=== PATIENT | female | born 1975 | race Caucasian/White ===

== ENCOUNTER 2019-01-20 19:32 | Emergency (ER) | payer BC, OTHER ==
[~2019-01-20] VITALS: Ht 157.5 cm; Wt 74.8 kg
--- OUTSIDE RECORDS SUMMARY | 2019-01-20 19:36 | XMS REPORT | Continuity of Care Document ---
Author Organization Unknown Address Unknown Allergies Active Description Code Type Severity Reaction Onset Reported/Identified Relationship to Patient Clinical Status Yes PENICILLINS 25 Drug Class High Hives 03/22/2018 Medications There is no data. Problems There is no data. Procedures Code Description Performed By Performed On AMS120 NURSING COMMUNICATION 09/08/2018 [id number] URINE TEST 09/09/2018 ADT8 DISCHARGE PATIENT 09/09/2018 [id number] NURSING COMMUNICATION 09/09/2018 [id number] VITAL SIGNS 09/09/2018 QUE378 DIET INSTRUCTIONS TO NURSING 09/09/2018 [id number] GLUCOSE POC 09/09/2018 DIET41 DIET NPO 09/09/2018 IVT3 INSERT PERIPHERAL IV 09/09/2018 [id number] NOTIFY PHYSICIAN 09/09/2018 [id number] NURSING COMMUNICATION 09/09/2018 TJK227 GLUCOSE POC 09/09/2018 IVT10 DISCONTINUE IV 09/09/2018 CEK373 GLUCOSE POC 09/09/2018 [id number] FL FLUORO IMAGES FOR PACS 09/09/2018 Results Test Result Range URINE TEST - 09/09/18 09:58 UCG URINE Negative Negative LIPID PANEL - 12/27/18 13:36 CHOLESTEROL, TOTAL 205 mg/dL <200 HDL CHOLESTEROL 57 mg/dL >50 TRIGLYCERIDES 184 mg/dL <150 LDL-CHOLESTEROL 117 mg/dL (calc) NRG CHOL/HDLC RATIO 3.6 (calc) <5.0 NON HDL CHOLESTEROL 148 mg/dL (calc) <130 CMP - 12/27/18 13:36 GLUCOSE 86 mg/dL 65-99 UREA NITROGEN (BUN) 12 mg/dL 7-25 CREATININE 0.85 mg/dL 0.50-1.10 eGFR NON-AFR. SCOTTISH 83 mL/min/1.73m2 > OR=60 eGFR 96 mL/min/1.73m2 > OR=60 BUN/CREATININE RATIO NOT APPLICABLE (calc) 6-22 SODIUM 145 mmol/L 135-146 POTASSIUM 5.1 mmol/L 3.5-5.3 CHLORIDE 107 mmol/L 98-110 CARBON DIOXIDE 15 mmol/L 20-32 CALCIUM 9.9 mg/dL 8.6-10.2 PROTEIN, TOTAL 7.8 g/dL 6.1-8.1 ALBUMIN 4.5 g/dL 3.6-5.1 GLOBULIN 3.3 g/dL (calc) 1.9-3.7 ALBUMIN/GLOBULIN RATIO 1.4 (calc) 1.0-2.5 BILIRUBIN, TOTAL 0.4 mg/dL 0.2-1.2 ALKALINE PHOSPHATASE 74 U/L 33-115 AST 20 U/L 10-35 ALT 11 U/L 6-29 Encounters ACCT No. Visit Date/Time Discharge Status Pt. Type Provider Facility Loc./Unit Complaint [id number] 12/20/2018 16:40:00 12/20/2018 23:59:59 CLS Outpatient OXANA ELYSE NEREYDA [facility] [id number] 12/27/2018 14:30:00 Document Registration [id number] 09/09/2018 08:54:00 09/09/2018 12:10:00 DIS Outpatient NED CORTEZ [facility] GI dysphagia [id number] 09/09/2018 10:44:43 Document Registration
--- NOTE | 2019-01-20 19:47 | NUR ---
DOCTOR MO IN TO SEE THE PATIENT.
--- NOTE | 2019-01-20 19:51 | ED Neck-Back Pain/Injury ---
General Chief Complaint: Head/Cervical Problems Stated Complaint: MIGRAINE History of Present Illness Date Seen by Provider: January 20, 2019 Time Seen by Provider: 19:46 Initial Comments 43-year-old female with history of migraines presents with her typical migraine. She states she has film unusually but this is typical for her. She describes a generalized headache more frontal in nature. No head injury. Not on any blood thinners. She denies any paresthesias or weakness. No incoordination or dysarthria reported. She states her headache is been precipitated by stress. Headache has been present for prospect for days. She has tried Tylenol once for it but has not had improvement. No balance or incoordination problems reported. She has had nausea without vomiting. She states that she is able to get a ride home. Allergies and Home Medications Allergies Coded Allergies: Penicillins (Verified Allergy, Unknown, 01/20/19) Patient Home Medication List Home Medication List Reviewed: Yes Review of Systems Constitutional: no symptoms reported EENTM: no symptoms reported Respiratory: no symptoms reported Cardiovascular: no symptoms reported Gastrointestinal: see HPI Genitourinary: no symptoms reported : No Musculoskeletal: no symptoms reported Skin: no symptoms reported Psychiatric/Neurological: See HPI, Anxiety, Headache; Denies Numbness, Denies Paresthesia, Denies Pre-Existing Deficit, Denies Weakness Past Zlggxsq-Prfiic-Jmqlou Hx Past Med/Social Hx: Reviewed Nursing Past Med/Soc Hx Patient Social History Recent Foreign Travel: No Contact w/Someone Who Travel: No Physical Exam Vital Signs Vital Signs - First Documented 01/20/19 19:44 Temp 97.7 Pulse 83 Resp 20 B/P (MAP) 154/102 (119) Pulse Ox 100 O2 Delivery Room Air Capillary Refill : Less than 2 seconds Height, Weight, BMI Height: '" Weight: lbs. oz. kg; BMI Method: General Appearance: No Apparent Distress, WD/WN HEENT: PERRL/EOMI, TMs Normal, Normal ENT Inspection, Pharynx Normal Neck: Full Range of Motion, Normal Inspection, Non Tender, Supple Cardiovascular: Regular Rate, Rhythm, No Edema, No Gallop, No JVD, No Murmur, Normal Peripheral Pulses Respiratory: Chest Non Tender, Lungs Clear, Normal Breath Sounds, No Accessory Muscle Use, No Respiratory Distress, Accessory Muscle Use Peripheral Pulses: 0 Carotid (R); 2+ Carotid (R); 0 Carotid (L); 2+ Carotid (L) ; 0 Femoral (R); 2+ Femoral (R); 0 Femoral (L); 2+ Femoral (L); 0 Dorsalis Pedis (R); 2+ Dorsalis Pedis (R); 0 Left Dors-Pedis (L); 2+ Left Dors-Pedis (L) , 2+ Radial Pulses (R), 2+ Radial Pulses (L) Gastrointestinal: Normal Bowel Sounds, No Organomegaly, No Pulsatile Mass, Non Tender, Soft Back: Normal Inspection, No CVA Tenderness, No Vertebral Tenderness, Other Extremity: Normal Capillary Refill, Normal Inspection, Normal Range of Motion, Non Tender, No Calf Tenderness, No Pedal Edema Neurologic/Psychiatric: Alert, Oriented x3, No Motor/Sensory Deficits, Normal Mood/Affect, mainframe analyst II-XII Norm as Tested; No EOM Palsy, No Facial Droop, No Motor Weakness; Other (NIH 0, finger to nose normal bilaterally. Sensation to light touch normal.) Skin: Normal Color, Warm/Dry Lymphatic: No Adenopathy, Axilla Node Tender (L) Progress/Results/Core Measures Results/Orders Lab Results Laboratory Tests Test 01/20/19 20:06 01/20/19 20:10 Range/Units Urine Color YELLOW Urine Clarity CLEAR Urine pH 5.5 5-9 Urine Specific [place] 1.025 H 1.016-1.022 Urine Protein NEGATIVE NEGATIVE Urine Glucose (UA) NEGATIVE NEGATIVE Urine Ketones TRACE H NEGATIVE Urine Nitrite NEGATIVE NEGATIVE Urine Bilirubin NEGATIVE NEGATIVE Urine Urobilinogen 0.2 NORMAL MG/DL Urine Leukocyte Esterase NEGATIVE NEGATIVE Urine RBC (Auto) TRACE H NEGATIVE Urine RBC 0-2 /HPF Urine WBC 0-2 /HPF Urine Squamous Epithelial Cells 0-2 /HPF Urine Crystals NONE /LPF Urine Bacteria NEGATIVE /HPF Urine Casts NONE /LPF Urine Mucus NONE /LPF Urine Culture Indicated NO Urine Opiates Screen NEGATIVE NEGATIVE Urine Oxycodone Screen NEGATIVE NEGATIVE Urine Methadone Screen NEGATIVE NEGATIVE Urine Propoxyphene Screen NEGATIVE NEGATIVE Urine Barbiturates Screen NEGATIVE NEGATIVE Ur Tricyclic Antidepressants Screen NEGATIVE NEGATIVE Urine Phencyclidine Screen NEGATIVE NEGATIVE Urine Amphetamines Screen NEGATIVE NEGATIVE Urine Methamphetamines Screen NEGATIVE NEGATIVE Urine Benzodiazepines Screen NEGATIVE NEGATIVE Urine Cocaine Screen NEGATIVE NEGATIVE Urine Cannabinoids Screen NEGATIVE NEGATIVE White Blood Count 13.1 H 4.3-11.0 10^3/uL Red Blood Count 4.47 4.35-5.85 10^6/uL Hemoglobin 13.0 11.5-16.0 G/DL Hematocrit 39 35-52 % Mean Corpuscular Volume 89 80-99 FL Mean Corpuscular Hemoglobin 29 25-34 PG Mean Corpuscular Hemoglobin Concent 33 32-36 G/DL Red Cell Distribution Width 13.9 10.0-14.5 % Platelet Count 329 130-400 10^3/uL Mean Platelet Volume 10.2 7.4-10.4 FL Neutrophils (%) (Auto) 71 42-75 % Lymphocytes (%) (Auto) 22 12-44 % Monocytes (%) (Auto) 5 0-12 % Eosinophils (%) (Auto) 1 0-10 % Basophils (%) (Auto) 1 0-10 % Neutrophils # (Auto) 9.4 H 1.8-7.8 X 10^3 Lymphocytes # (Auto) 2.9 1.0-4.0 X 10^3 Monocytes # (Auto) 0.6 0.0-1.0 X 10^3 Eosinophils # (Auto) 0.1 0.0-0.3 10^3/uL Basophils # (Auto) 0.1 0.0-0.1 10^3/uL Sodium Level 140 135-145 MMOL/L Potassium Level 4.0 3.6-5.0 MMOL/L Chloride Level 104 98-107 MMOL/L Carbon Dioxide Level 23 21-32 MMOL/L Anion Gap 13 5-14 MMOL/L Blood Urea Nitrogen 7 7-18 MG/DL Creatinine 0.76 0.60-1.30 MG/DL Estimat Glomerular Filtration Rate > 60 BUN/Creatinine Ratio 9 Glucose Level 92 70-105 MG/DL Calcium Level 8.7 8.5-10.1 MG/DL Corrected Calcium 8.6 8.5-10.1 MG/DL Total Bilirubin 0.3 0.1-1.0 MG/DL Aspartate Amino Transf (AST/SGOT) 17 5-34 U/L Alanine Aminotransferase (ALT/SGPT) 10 0-55 U/L Alkaline Phosphatase 71 40-136 U/L Total Protein 7.6 6.4-8.2 GM/DL Albumin 4.1 3.2-4.5 GM/DL My Orders Orders - CALLUM HASSAN MD Cbc With Automated Diff (01/20/19 19:52) Comprehensive Metabolic Panel (01/20/19 19:52) Drug Screen Stat (Urine) (01/20/19 19:52) Ua Culture If Indicated (01/20/19 19:52) Ed Iv/Invasive Line Start (01/20/19 19:52) Ed Iv/Invasive Line Start (01/20/19 19:52) Ns Iv 1000 Ml (Sodium Chloride 0.9%) (01/20/19 19:52) Ketorolac Injection (Toradol Injection) (01/20/19 20:00) Diphenhydramine Injection (Benadryl Inje (01/20/19 20:00) Promethazine Injection (Phenergan Injec (01/20/19 20:00) Dexamethasone Injection (Decadron Inject (01/20/19 21:00) Medications Given in ED Current Medications Medications Dose Ordered Sig/Wilfrido Route Start Time Stop Time Status Last Admin Dose Admin Dexamethasone Sodium Phosphate 10 mg ONCE ONCE IV 01/20/19 21:00 01/20/19 21:01 DC 01/20/19 20:58 10 MG Diphenhydramine HCl 25 mg ONCE ONCE IV 01/20/19 20:00 01/20/19 20:01 DC 01/20/19 20:10 25 MG Ketorolac Tromethamine 15 mg ONCE ONCE IV 01/20/19 20:00 01/20/19 20:01 DC 01/20/19 20:12 15 MG Promethazine HCl 25 mg ONCE ONCE IVP 01/20/19 20:00 01/20/19 20:01 DC 01/20/19 20:14 25 MG Vital Signs/I&O 01/20/19 19:44 Temp 97.7 Pulse 83 Resp 20 B/P (MAP) 154/102 (119) Pulse Ox 100 O2 Delivery Room Air Progress Progress Note : Time: 20:32 Progress Note Headaches somewhat improved although still present. Has tolerated her medications well. We'll continue infusion of saline and continue to monitor. Discussed with her. 2136 Feeling much better after IVF, Toradol, Phenergan, Benadryl and Decadron. She remains neurologically intact and states that she feels ready to go home. She has a ride to take her home. Discussed follow up. Departure Impression Primary Impression: Migraine Qualified Codes: G43.109 - Migraine with aura, not intractable, without status migrainosus Disposition: 01 HOME, SELF-CARE Condition: Improved Departure-Patient Inst. Decision time for Depature: 21:38 Referrals: CALLUM BEAULIEU MD (PCP) Primary Care Physician 2-3 days, sooner as needed. Patient Instructions: Migraine Headache (DC) CALLUM HASSAN MD January 20, 2019 19:51
[2019-01-20] MEDS ORDERED: NS IV 1000 ML 1,000 ML IV SCH (19:52)
[2019-01-20] MEDS ORDERED: KETOROLAC 15 MG/ML VIAL IV ONE (20:00)
[2019-01-20] MEDS ORDERED: diphenhydrAMINE 50 MG/ML INJ (BENADRYL) IV ONE (20:00)
[2019-01-20] MEDS ORDERED: PROMETHAZINE INJ 25 MG/ML (PHENERGAN) AMP IVP ONE (20:00)
[2019-01-20 20:20] LABS: CLARITY,URINE CLEAR; COLOR,URINE YELLOW; GLUCOSE, URINE (UA) NEGATIVE (NEGATIVE); PH,URINE 5.5 (5-9); PROTEIN,URINE NEGATIVE (NEGATIVE)
[2019-01-20 20:21] LABS: BACTERIA,URINE NEGATIVE /HPF; BILIRUBIN,URINE NEGATIVE (NEGATIVE); KETONES,URINE TRACE (NEGATIVE); LEUKOCYTE ESTERASE ,URINE NEGATIVE (NEGATIVE); NITRITE,URINE NEGATIVE (NEGATIVE); RBC,URINE 0-2 /HPF; SQUAMOUS EPITHELIAL CELL,UR 0-2 /HPF; UROBILINOGEN,URINE 0.2 MG/DL (NORMAL); WBC,URINE 0-2 /HPF
[2019-01-20 20:26] LABS: AMPHETAMINE SCREEN, URINE NEGATIVE (NEGATIVE); BARBITURATE SCREEN URINE NEGATIVE (NEGATIVE); BENZODIAZEPINES SCREEN URINE NEGATIVE (NEGATIVE); CANNABINOID SCREEN, URINE NEGATIVE (NEGATIVE); COCAINE SCREEN URINE NEGATIVE (NEGATIVE); METHADONE STAT NEGATIVE (NEGATIVE); METHAMPHETAMINE SCREEN URINE S NEGATIVE (NEGATIVE); OPIATE SCREEN URINE NEGATIVE (NEGATIVE); OXYCODONE STAT NEGATIVE (NEGATIVE); PROPOXYPHENE STAT NEGATIVE (NEGATIVE); TRICYCLIC ANTIDEPRESSANTS SCRE NEGATIVE (NEGATIVE)
[2019-01-20 20:26] LABS: WHITE BLOOD COUNT 13.1 10^3/uL (4.3-11.0)
[2019-01-20 20:27] LABS: BASOPHILS % (AUTO) 1 % (0-10); EOSINOPHILS % (AUTO) 1 % (0-10); HEMATOCRIT 39 % (35-52); LYMPHOCYTES % (AUTO) 22 % (12-44); MEAN CORPUSCULAR HEMOGLOBIN 29 PG (25-34); MEAN CORPUSCULAR HGB CONC 33 G/DL (32-36); MEAN CORPUSCULAR VOLUME 89 FL (80-99); MEAN PLATELET VOLUME 10.2 FL (7.4-10.4); MONOCYTES % (AUTO) 5 % (0-12); NEUTROPHILS % (AUTO) 71 % (42-75); PLATELET COUNT 329 10^3/uL (130-400); RED CELL DISTRIBUTION WIDTH 13.9 % (10.0-14.5)
[2019-01-20 20:28] LABS: BASOPHILS # (AUTO) 0.1 10^3/uL (0.0-0.1); EOSINOPHILS # (AUTO) 0.1 10^3/uL (0.0-0.3); LYMPHOCYTES # (AUTO) 2.9 X 10^3 (1.0-4.0); MONOCYTES # (AUTO) 0.6 X 10^3 (0.0-1.0); NEUTROPHILS # (AUTO) 9.4 X 10^3 (1.8-7.8)
[2019-01-20 20:51] LABS: SODIUM 140 MMOL/L (135-145)
[2019-01-20 20:52] LABS: ALANINE AMINOTRANSFERASE 10 U/L (0-55); ALKALINE PHOSPHATASE 71 U/L (40-136); BILIRUBIN,TOTAL 0.3 MG/DL (0.1-1.0); BUN/CREATININE RATIO 9; CALCIUM 8.7 MG/DL (8.5-10.1); CARBON DIOXIDE 23 MMOL/L (21-32); CHLORIDE 104 MMOL/L (98-107); CREATININE SERUM 0.76 MG/DL (0.60-1.30); GFR ESTIMATED > 60; GLUCOSE 92 MG/DL (70-105)
[2019-01-20 20:53] LABS: ALBUMIN 4.1 GM/DL (3.2-4.5); TOTAL PROTEIN 7.6 GM/DL (6.4-8.2)
[2019-01-20] MEDS ORDERED: DEXAMETHASONE 4 MG/ML SDV (DECADRON) IV ONE (21:00)
--- NOTE | 2019-01-20 21:12 | NUR ---
PT. RESTING WITH EYES CLOSED AT THIS TIME.
--- NOTE | 2019-01-20 21:24 | NUR ---
PT. TO THE BATHROOM AT THIS TIME.
[2019-01-20 21:44] VITALS: BP 154/102
== END 2019-01-20 21:45 | disposition home or self-care (01) ==
LOC: ER FS 19:33
DX: G43.909 Migraine, unspecified, not intractable, without status migrainosus (principal); Z88.0 Allergy status to penicillin
CPT/HCPCS: 36415; 80053; 80306; 81000; 85025; 99284

== ENCOUNTER 2019-05-17 18:59 | Emergency (ER) | payer BC ==
[~2019-05-17] VITALS: Ht 157.5 cm; Wt 77.1 kg
--- NOTE | 2019-05-17 20:47 | ED General ---
General Chief Complaint: Head/Cervical Problems Stated Complaint: MIGRAINE, LT SIDE ABD PAIN Nursing Triage Note: pt. reported she started having a migraine and abd. pain around 1400 today. has had some nausea but no vomiting. the abd. pain is upper gastric on the left side. Nursing Sepsis Screen: No Definite Risk Source of Information: Patient History of Present Illness Date Seen by Provider: May 17, 2019 Time Seen by Provider: 20:47 Initial Comments 44-year-old female presenting with complaints of left-sided headache as well as left-sided abdominal pain. She states that the migraine headache started around 1:30 or 2:00 this afternoon. She started having the left-sided abdominal pain a round the same time. The abdominal pain feels similar to pains that she was having approximately a year ago just prior to having a surgery for hiatal hernia and reflux disease. She has had nausea but no vomiting. She states that she cannot vomit now that she's had the surgery for where the hernia and ordered the reflux. She reports that they did 3 things at one time when they get surgery and it was done at [facility]. She does not remember the exact name of the surgery or the surgeon. It was approximately 1 year ago today that they did the surgery. She has not had any of this pain on the left side until today. She denies any diarrhea or constipation. She has a history of recurrent headaches and migraines but they are decreased since she has been on topiramate from Dr. Sultana. She also has been having some near syncopal episodes in the afternoons this feels similar to having a low blood sugar. She gets shaky and due to the passes out. She did have one of those episodes today while she was not feeling good. These always seemed to happen around 3:30 or 4:00. Allergies and Home Medications Allergies Coded Allergies: Penicillins (Verified Allergy, Unknown, 01/20/19) Patient Home Medication List Home Medication List Reviewed: Yes Review of Systems Review of Systems Constitutional: No chills, No fever, No malaise EENTM: no symptoms reported Respiratory: no symptoms reported Cardiovascular: no symptoms reported Gastrointestinal: abdominal pain (LUQ); No constipation, No diarrhea, No dysphagia, No hematemesis; heartburn (mild); No jaundice, No melena, No nausea, No vomiting Genitourinary: no symptoms reported Musculoskeletal: no symptoms reported Skin: no symptoms reported Psychiatric/Neurological: No Symptoms Reported Hematologic/Lymphatic: No Symptoms Reported Past Qlxecxa-Wfodbq-Bbiqmf Hx Past Med/Social Hx: Reviewed Nursing Past Med/Soc Hx Patient Social History Recent Foreign Travel: No Contact w/Someone Who Travel: No Recent Infectious Disease Expo: No Physical Abuse: No Sexual Abuse: No Mistreated: No Fear: No Physical Exam Vital Signs Vital Signs - First Documented 05/17/19 19:05 Temp 98.0 Pulse 82 Resp 16 B/P (MAP) 156/86 (109) Pulse Ox 98 O2 Delivery Room Air Capillary Refill : Less Than 3 Seconds Height, Weight, BMI Height: 5'2.00" Weight: 170lbs. oz. 77.482865as; BMI Method:Stated General Appearance: No Apparent Distress, WD/WN HEENT: PERRL/EOMI, Normal ENT Inspection, Pharynx Normal Neck: Full Range of Motion, Normal Inspection, Non Tender, Supple Respiratory: Chest Non Tender, Lungs Clear, Normal Breath Sounds, No Accessory Muscle Use, No Respiratory Distress Cardiovascular: Regular Rate, Rhythm, Normal Peripheral Pulses Gastrointestinal: Normal Bowel Sounds, No Pulsatile Mass, Soft; No Abnormal Bowel Sounds, No Distended, No Guarding, No Hernia, No Mass, No Rebound; Tenderness (mild left upper quadrant) Extremity: Normal Capillary Refill, Normal Inspection, Normal Range of Motion, No Calf Tenderness, No Pedal Edema Neurologic/Psychiatric: Alert, Oriented x3, No Motor/Sensory Deficits, Normal Mood/Affect, mark up designer II-XII Norm as Tested Skin: Normal Color, Warm/Dry Progress/Results/Core Measures Suspected Sepsis Recent Fever Within 48 Hours: No Infection Criteria Present: None New/Unexplained Altered Menta: No Sepsis Screen: No Definite Risk SIRS Temperature:98.0 Pulse: 82 Respiratory Rate: 16 Laboratory Tests 05/17/19 21:25: White Blood Count 11.2H Blood Pressure 156 /86 Mean: 109 Laboratory Tests 05/17/19 21:25: Creatinine 0.84, Platelet Count 350, Total Bilirubin 0.3 Results/Orders Lab Results Laboratory Tests Test 05/17/19 21:25 05/17/19 22:22 Range/Units White Blood Count 11.2 H 4.3-11.0 10^3/uL Red Blood Count 4.45 4.35-5.85 10^6/uL Hemoglobin 13.3 11.5-16.0 G/DL Hematocrit 40 35-52 % Mean Corpuscular Volume 91 80-99 FL Mean Corpuscular Hemoglobin 30 25-34 PG Mean Corpuscular Hemoglobin Concent 33 32-36 G/DL Red Cell Distribution Width 14.0 10.0-14.5 % Platelet Count 350 130-400 10^3/uL Mean Platelet Volume 10.2 7.4-10.4 FL Neutrophils (%) (Auto) 55 42-75 % Lymphocytes (%) (Auto) 37 12-44 % Monocytes (%) (Auto) 5 0-12 % Eosinophils (%) (Auto) 2 0-10 % Basophils (%) (Auto) 1 0-10 % Neutrophils # (Auto) 6.2 1.8-7.8 X 10^3 Lymphocytes # (Auto) 4.1 H 1.0-4.0 X 10^3 Monocytes # (Auto) 0.6 0.0-1.0 X 10^3 Eosinophils # (Auto) 0.2 0.0-0.3 10^3/uL Basophils # (Auto) 0.1 0.0-0.1 10^3/uL Sodium Level 140 135-145 MMOL/L Potassium Level 4.0 3.6-5.0 MMOL/L Chloride Level 104 98-107 MMOL/L Carbon Dioxide Level 20 L 21-32 MMOL/L Anion Gap 16 H 5-14 MMOL/L Blood Urea Nitrogen 12 7-18 MG/DL Creatinine 0.84 0.60-1.30 MG/DL Estimat Glomerular Filtration Rate > 60 BUN/Creatinine Ratio 14 Glucose Level 91 70-105 MG/DL Calcium Level 8.9 8.5-10.1 MG/DL Corrected Calcium 8.5 8.5-10.1 MG/DL Total Bilirubin 0.3 0.1-1.0 MG/DL Aspartate Amino Transf (AST/SGOT) 16 5-34 U/L Alanine Aminotransferase (ALT/SGPT) 12 0-55 U/L Alkaline Phosphatase 73 40-136 U/L Total Protein 7.9 6.4-8.2 GM/DL Albumin 4.5 3.2-4.5 GM/DL Lipase 38 8-78 U/L Urine Color YELLOW Urine Clarity CLEAR Urine pH 7.5 5-9 Urine Specific [place] 1.010 L 1.016-1.022 Urine Protein NEGATIVE NEGATIVE Urine Glucose (UA) NEGATIVE NEGATIVE Urine Ketones NEGATIVE NEGATIVE Urine Nitrite NEGATIVE NEGATIVE Urine Bilirubin NEGATIVE NEGATIVE Urine Urobilinogen 0.2 NORMAL MG/DL Urine Leukocyte Esterase NEGATIVE NEGATIVE Urine RBC (Auto) TRACE H NEGATIVE Urine RBC NONE /HPF Urine WBC RARE /HPF Urine Squamous Epithelial Cells 5-10 /HPF Urine Crystals NONE /LPF Urine Bacteria TRACE /HPF Urine Casts NONE /LPF Urine Mucus NONE /LPF Urine Culture Indicated NO Urine Test NEGATIVE NEGATIVE My Orders Orders - CHUCKY SINGH MD Iv/Invasive Line Insertion .IV start (05/17/19 21:26) Cbc With Automated Diff (05/17/19 21:26) Comprehensive Metabolic Panel (05/17/19 21:26) Lipase (05/17/19 21:26) Ua Culture If Indicated (05/17/19 21:26) Hcg,Qualitative Urine (05/17/19 21:26) Ns Iv 1000 Ml (Sodium Chloride 0.9%) (05/17/19 21:26) Ketorolac Injection (Toradol Injection) (05/17/19 21:26) Diphenhydramine Injection (Benadryl Inje (05/17/19 21:26) Ondansetron Injection (Zofran Injectio (05/17/19 21:26) Pantoprazole Injection (Protonix Injecti (05/17/19 21:26) Vital Signs/I&O 05/17/19 05/17/19 19:05 23:09 Temp 98.0 97.0 Pulse 82 77 Resp 16 18 B/P (MAP) 156/86 (109) 133/76 (95) Pulse Ox 98 96 O2 Delivery Room Air Room Air 05/18/19 00:00 Intake Total 1000 ml Balance 1000 ml Capillary Refill : Less Than 3 Seconds Blood Pressure Mean: 109 Progress Note #1: Progress Note Check labs and give IV fluids with Toradol, Benadryl, Zofran for her migraine. Counseled that we might do a CT scan but would wait for the labs and tests to see if anything came back showing abnormal before putting her through the radiation of the scan. Progress Note #2: Progress Note On recheck her headache was down to 1 or 2 after treatment with medicines and fluids. Her abdominal pain was improved after the Protonix as well as the medicines that she was getting for the migraine. She was providing a urine sample and discussed with the patient that provided the urine and took a with plan on discharging the patient rather than putting her through the radiation of a CT scan which would increase her lifelong risk of potential cancer. Progress Note #3: Progress Note Urinalysis was okay without indication of an acute urinary tract infection. Reviewed results with patient and spouse. Will plan on discharge to home as previously reviewed. Advised to check with clinic for continued concerns. Also counseled to try including a high-protein snacker diet towards the early afternoon to try and help with the mid afternoon near fainting episodes in case they are from her sugar dropping Departure Impression Primary Impression: Migraine headache without aura Qualified Codes: G43.009 - Migraine without aura, not intractable, without status migrainosus Additional Impressions: LUQ abdominal pain Near syncope Disposition: 01 HOME, SELF-CARE Condition: Stable Departure-Patient Inst. Decision time for Depature: 23:09 Referrals: CALLUM SULTANA MD (PCP) Primary Care Physician Patient Instructions: Migraine Headache (DC) Add. Discharge Instructions: Continue on your regular medicines Try taking a protein snack or eating something in the early afternoon to see if that helps prevent you from having the near fainting episodes you have been getting in the late afternoon. If your abdominal pain does not improve with taking the acid reducing medicine then check with Dr. Sultana or your surgeon from [facility]. If you continue to have pain or if it worsens then return or seek medical care for further testing and evaluation. Try taking a two week pack of medicine over the counter, such as Prevacid, Nexium or Prilosec to help with your abdominal pain All discharge instructions reviewed with patient and/or family. Voiced understanding. CHUCKY SINGH MD May 17, 2019 20:47
[2019-05-17] MEDS ORDERED: KETOROLAC 30 MG/ML VIAL IVP STA (21:26)
[2019-05-17] MEDS ORDERED: NS IV 1000 ML 1,000 ML IV STA (21:26)
[2019-05-17] MEDS ORDERED: PANTOPRAZOLE 40 MG (PROTONIX) VIAL IV STA (21:26)
[2019-05-17] MEDS ORDERED: ONDANSETRON 4 MG/2 ML (SDV) Z0FRAN IVP STA (21:26)
[2019-05-17] MEDS ORDERED: diphenhydrAMINE 50 MG/ML INJ (BENADRYL) IVP STA (21:26)
[2019-05-17 21:37] LABS: HEMATOCRIT 40 % (35-52); HEMOGLOBIN 13.3 G/DL (11.5-16.0); MEAN CORPUSCULAR HEMOGLOBIN 30 PG (25-34); MEAN CORPUSCULAR HGB CONC 33 G/DL (32-36); MEAN CORPUSCULAR VOLUME 91 FL (80-99); MEAN PLATELET VOLUME 10.2 FL (7.4-10.4); PLATELET COUNT 350 10^3/uL (130-400); WHITE BLOOD COUNT 11.2 10^3/uL (4.3-11.0)
[2019-05-17 21:38] LABS: BASOPHILS # (AUTO) 0.1 10^3/uL (0.0-0.1); BASOPHILS % (AUTO) 1 % (0-10); EOSINOPHILS # (AUTO) 0.2 10^3/uL (0.0-0.3); EOSINOPHILS % (AUTO) 2 % (0-10); LYMPHOCYTES # (AUTO) 4.1 X 10^3 (1.0-4.0); LYMPHOCYTES % (AUTO) 37 % (12-44); MONOCYTES # (AUTO) 0.6 X 10^3 (0.0-1.0); MONOCYTES % (AUTO) 5 % (0-12); NEUTROPHILS # (AUTO) 6.2 X 10^3 (1.8-7.8); NEUTROPHILS % (AUTO) 55 % (42-75)
[2019-05-17 21:54] LABS: BUN/CREATININE RATIO 14; CARBON DIOXIDE 20 MMOL/L (21-32); CHLORIDE 104 MMOL/L (98-107); CREATININE SERUM 0.84 MG/DL (0.60-1.30); GFR ESTIMATED > 60; GLUCOSE 91 MG/DL (70-105); SODIUM 140 MMOL/L (135-145)
[2019-05-17 21:55] LABS: ALANINE AMINOTRANSFERASE 12 U/L (0-55); ALBUMIN 4.5 GM/DL (3.2-4.5); ALKALINE PHOSPHATASE 73 U/L (40-136); BILIRUBIN,TOTAL 0.3 MG/DL (0.1-1.0); CALCIUM 8.9 MG/DL (8.5-10.1); LIPASE 38 U/L (8-78); TOTAL PROTEIN 7.9 GM/DL (6.4-8.2)
[2019-05-17 22:37] LABS: CLARITY,URINE CLEAR; COLOR,URINE YELLOW; PH,URINE 7.5 (5-9)
[2019-05-17 22:38] LABS: BACTERIA,URINE TRACE /HPF; BILIRUBIN,URINE NEGATIVE (NEGATIVE); GLUCOSE, URINE (UA) NEGATIVE (NEGATIVE); KETONES,URINE NEGATIVE (NEGATIVE); LEUKOCYTE ESTERASE ,URINE NEGATIVE (NEGATIVE); NITRITE,URINE NEGATIVE (NEGATIVE); PROTEIN,URINE NEGATIVE (NEGATIVE); UROBILINOGEN,URINE 0.2 MG/DL (NORMAL); WBC,URINE RARE /HPF
[2019-05-17 22:39] LABS: HCG,QUALITATIVE URINE NEGATIVE (NEGATIVE)
[2019-05-17 23:09] VITALS: BP 133/76
== END 2019-05-17 23:16 | disposition home or self-care (01) ==
LOC: EDUNIT# 18:59 → ER FS 19:01
DX: G43.909 Migraine, unspecified, not intractable, without status migrainosus (principal); R55 Syncope and collapse; R10.12 Left upper quadrant pain; Z88.0 Allergy status to penicillin
CPT/HCPCS: 36415; 80053; 81000; 83690; 84703; 85025

== ENCOUNTER 2021-08-16 13:40 | Emergency (ER) | payer BC ==
[~2021-08-16] VITALS: Ht 157.5 cm; Wt 77.1 kg
--- OUTSIDE RECORDS SUMMARY | 2021-08-16 13:44 | XMS REPORT | Encounter Summary ---
Author Author [facility] Organization [facility] Address Unknown Phone Unavailable Care Team Providers Care Custodial Laborer Name Role Phone Vega Sultana MD PCP Encounter Details Care Team Description Date Type Department Encounter for consultation 08/01/2021 Imaging [facility] Virtual [facility] Appointment Location Social History Date Tobacco Use Types Packs/Day Years Used Never Smoker Smokeless Tobacco: Never Used Comments Alcohol Use Standard Drinks/Week rare Yes 0 (1 standard drink = 0.6 o z pure alcohol) Alcohol Habits Answer Date Recorded How often do you have a drink containing alcohol? No t asked How many drinks containing alcohol do you have on No t asked a typical day when you are drinking? How often do you have six or more drinks on one Not asked occasion? Comment: rare 04/04/2020 Sex Assigned at Date Recorded Not on file documented as of this encounter Plan of Treatment Care Team Description Date Type Specialty Clarita Briceno, [facility] [address] [facility] [address] [place] [address] 08/05/2022 Office Visit Obstetrics and Gyne cology documented as of this encounter Procedures Comments Procedure Name Priority Date/Time Associated Diag nosis US OUTSIDE IMAGES FOR Routine 08/01/2021 Encounte r for PACS 7:43 AM NUCLEAR MEDICINE OFFICER consultation documented in this encounter Visit Diagnoses Diagnosis Encounter for consultation documented in this encounter Care Teams Start Date End Date Custodial Laborer Relationship Specialty 12/29/17 Vega Sultana MD PCP - General Pediatrics documented as of this encounter
--- OUTSIDE RECORDS SUMMARY | 2021-08-16 13:44 | XMS REPORT | Encounter Summary ---
Author Author [facility] Organization [facility] Address Unknown Phone Unavailable Care Team Providers Care Equipment Application Specialist Name Role Phone Vega Sultana MD PCP Encounter Details Care Team Description Date Type Department Encounter for consultation 08/01/2021 Imaging [facility] Virtual [facility] Appointment Location Social [...] Care Team Description Date Type [facility]ty [facility] [address] [facility] [address] [place] [address] 08/05/2022 Office Visit Obstetrics and Gyne cology documented as of this encounter Procedures Comments Procedure Name Priority Date/Time Associated Diag nosis MA OUTSIDE IMAGES FOR Routine 08/01/2021 Encounte r for PACS 7:42 AM CIA AGENT consultation documented in this encounter Visit Diagnoses Diagnosis Encounter for consultation documented in this encounter Care Teams Start Date End Date Equipment Application Specialist Relationship Specialty 12/29/17 Vega Sultana MD PCP - General Pediatrics documented as of this encounter
--- OUTSIDE RECORDS SUMMARY | 2021-08-16 13:44 | XMS REPORT | Encounter Summary ---
Author Author [facility] Organization [facility] Address Unknown Phone Unavailable Care Team Providers Care Foreclosure Specialist Name Role Phone Vega Sultana MD PCP Encounter Details Care Team Description Date Type Department Encounter for consultation 08/01/2021 Imaging [facility] Virtual Revenu e Appointment Location Social History [...] Team Description Date Type Specialty Clarita Briceno, [facility] [address] [address] 08/05/2022 Office Visit Obstetrics and Gyne cology documented as of this encounter Procedures Comments Procedure Name Priority Date/Time Associated Diag nosis US OUTSIDE IMAGES FOR Routine 08/01/2021 Encounte r for PACS 7:51 AM SERVICE ASSOCIATE consultation documented in this encounter Visit Diagnoses Diagnosis Encounter for consultation documented in this encounter Care Teams Start Date End Date Foreclosure Specialist Relationship Specialty 12/29/17 Vega Sultana MD PCP - General Pediatrics documented as of this encounter
--- OUTSIDE RECORDS SUMMARY | 2021-08-16 13:44 | XMS REPORT | Encounter Summary ---
Author Author [facility] Organization [facility] Address Unknown Phone Unavailable Care Team Providers Care Hospital Cleaning Specialist Name Role Phone Vega Sultana MD PCP Encounter Details Care Team Description Date Type Department Encounter for consultation 08/01/2021 Imaging [facility] Virtual Revenu e Appointment Location Social History [...] Treatment Care Team Description Date Type [facility]ty [facility] [address] [facility] [address] [place] [address] 08/05/2022 Office Visit Obstetrics and Gyne cology documented as of this encounter Procedures Comments Procedure Name Priority Date/Time Associated Diag nosis MA OUTSIDE IMAGES FOR Routine 08/01/2021 Encounte r for PACS 7:43 AM SED MIDDLE SCHOOL TEACHER consultation documented in this encounter Visit Diagnoses Diagnosis Encounter for consultation documented in this encounter Care Teams Start Date End Date Hospital Cleaning Specialist Relationship Specialty 12/29/17 Vega Sultaan MD PCP - General Pediatrics documented as of this encounter
--- OUTSIDE RECORDS SUMMARY | 2021-08-16 13:44 | XMS REPORT | Clinical Summary ---
Author Author [facility] Organization [facility] Address Unknown Phone Unavailable Care Team Providers Care Floor Coverer Apprentice Name Role Phone Vega Sultana MD PCP Allergies Comments Active Allergy Reactions Severity Noted Date Azithromycin Hives 11/05/2017 Eletriptan Hbr Hives 03/25/2016 Mometasone-Formoterol Rash Low 09/18/20 14 Penicillins Hives High 03/22/2018 Compazine Compazine Prochlorperazine Hallucination 06/13/2019 s Triamcinolone Acetonide Rash Low 2008 Medications End Date Status Medication Sig Dispensed Refills Start Date Active topiramate (TOPAMAX) 50 Take 50 mg by 0 03/04/ 201 MG tablet mouth. 9 Active SUMAtriptan (IMITREX) 25 1 tablet with 0 01/26 /201 MG tablet onset of 9 migraine symptoms. january repeat 1 tab after 2 hours if symptoms persist. Active ondansetron (ZOFRAN-ODT) Take 4 mg by 0 01/24 4 MG disintegrating mouth every 8 9 tablet (eight) hours as needed. Active budesonide-formoteroL Inhale 2 0 09/15/20 1 (SYMBICORT) 160-4.5 puffs as 7 mcg/actuation inhaler needed. Active albuterol Inhale 2 0 (PROAIR/PROVENTIL/VENTOLI puffs every 6 9 N) 90 mcg/actuation HFA (six) hours inhaler as needed. Active estradioL 0.05 mg/24 Place 1 patch 24 patch 3 hrIndications: Menopausal on the skin 2 1 syndrome on hormone (two) times a replacement therapy week. 07/31/2021 Discontinued (Patient stoppe d taking - suppress on AVS) docusate sodium (COLACE) Take 1 60 capsule 2 0 100 MG capsule capsule (100 0 mg total) by mouth 2 (two) times a day. 07/31/2021 Discontinued (Reorder) estradioL 0.05 mg/[address] 1 patch 24 patch 3 on the skin 2 1 (two) times a week. 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 Added automatically from request for ranjana wang [id number] GERD (gastroesophageal reflux disease) 04/13/2018 05/18/2018 Hiatal hernia 04/13/2018 05/18/2018 Encounters Care Team Description Date Type Specialty Encounter for consultation 08/01/2021 Imaging Radiology Appointment Encounter for consultation 08/01/2021 Imaging Radiology Appointment Encounter for consultation 08/01/2021 Imaging Radiology Appointment Encounter for consultation 08/01/2021 Imaging Radiology Appointment Encounter for consultation 08/01/2021 Imaging Radiology Appointment Encounter for consultation 08/01/2021 Imaging Radiology Appointment Encounter for consultation 08/01/2021 Imaging Radiology Appointment Clarita Briceno ARNP Screening mammogram, encounter for 07/31/2021 Hospital Radiology Encounter Clarita Briceno ARNP Encounter for gynecological examination with abnormal finding (Primary Dx); 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; Pelvic pain; MORAIMA (stress urinary incontinence, female); Screening mammogram, encounter for 07/31/2021 Office Visit Obstetrics and Gyne cology Suzanne Meade RN med too expensive 06/20/2021 Telephone Obstetrics and Gyne cology Clarita Briceno ARNP Menopausal syndrome (Primary Dx); Screening mammogram, encounter for 06/19/2021 Office Visit Obstetrics and Gyne cology from Last 3 Months Immunizations Name Administration Dates Next Due Influenza QIV (IM) 06/18/2020 Influenza, Seasonal, 08/03/2019 Injectable Moderna Sars-cov-2 Full 11/30/2020, 10/25/2020 Dose PPD Test 11/18/2016 Td 09/21/1995 Tdap 04/14/2019 Family History Medical History Relation Name Comments Esophageal cancer Father Prostate cancer Father Breast cancer Maternal Aunt 1 Ovarian cancer Maternal Aunt 1 Breast cancer Maternal Aunt 2 Diabetes Mother Hypertension Mother Alcohol abuse Neg Hx Colon cancer Neg Hx Coronary artery disease Neg Hx Stroke Neg Hx Uterine cancer Neg Hx Relation Name Status Comments Father Maternal Aunt 1 Maternal Aunt 2 Mother Social History Date Tobacco Use Types Packs/Day [...] Assigned at Date Recorded Not on file Last Filed Vital Signs Reading Time Taken Comments Vital Sign 122/73 07/31/2021 9:03 AM SEAMER PANTY HOSE Blood Pressure 80 06/13/2020 3:09 PM CDT Pulse 36.8 C (98.3 F) 05/03/2020 7:59 AM CDT Temperature 16 05/03/2020 7:59 AM CDT Respiratory Rate 95% 05/03/2020 7:59 AM CDT Oxygen Saturation - - Inhaled Oxygen Concentration 78.9 kg (174 lb) 07/31/2021 9:03 AM SEAMER PANTY HOSE Weight 157.5 cm (5' 2") 07/31/2021 9:03 AM SEAMER PANTY HOSE Height 31.83 07/31/2021 9:03 AM SEAMER PANTY HOSE Body Mass Index Plan of Treatment Care Team Description Date Type Specialty Clarita Briceno ARNP [address] [facility] [address] [place] [address] 08/05/2022 Office Visit Obstetrics and Gyne cology Health Maintenance Due Date Last Done Comments Depression Monitoring 07/31/2022 07/31/2021 PHQ-9 # Td/Tdap# 04/14/2029 04/14/2019, 09/21/1995 Influenza Vaccine Completed 06/17/2021, 06/18/2020, 08/03/2019, Additional history exists COVID-19 Vaccine Completed 07/29/2021, 11/30/2020, 10/25/2020 Pneumococcal Vaccine: Aged Out No longer eligib le based on patient's age to Pediatrics (0 to 5 Years) complete this topic and At-Risk Patients (6 to 64 Years) Implants Device Identifier Shelf Expiration Date Model / Serial / L ot Implanted Type Area Manufactur er 02/16/2022 [id number] / / [id number] Implant Linx Reflux Mgmt System Mri Non-Tissue N/A: Abdom en TORAX Compatable - [id number] Implant Implanted: Qty: 1 on 05/18/2018 by Cesario Johnson MD at [facility] Procedures Comments Procedure Name Priority Date/Time Associated Diag nosis US OUTSIDE IMAGES FOR Routine 08/01/2021 Encounte r for PACS 7:51 AM SEAMER PANTY HOSE consultation US OUTSIDE IMAGES FOR Routine 08/01/2021 Encounte r for PACS 7:44 AM SEAMER PANTY HOSE consultation US OUTSIDE IMAGES FOR Routine 08/01/2021 Encounte r for PACS 7:43 AM SEAMER PANTY HOSE consultation MA OUTSIDE IMAGES FOR Routine 08/01/2021 Encounte r for PACS 7:43 AM SEAMER PANTY HOSE consultation MA OUTSIDE IMAGES FOR Routine 08/01/2021 Encounte r for PACS 7:43 AM SEAMER PANTY HOSE consultation MA OUTSIDE IMAGES FOR Routine 08/01/2021 Encounte r for PACS 7:43 AM SEAMER PANTY HOSE consultation MA OUTSIDE IMAGES FOR Routine 08/01/2021 Encounte r for PACS 7:42 AM SEAMER PANTY HOSE consultation MA MAMMOGRAM SCREENING W Routine 07/31/2021 Scree mirna mammogram, CAD TIMOTHY BILAT 10:11 AM SEAMER PANTY HOSE encounter for from Last 3 Months Results * US Outside images for PACS (08/01/2021 7:51 AM SEAMER PANTY HOSE) Only the most recent of 3 results within the time period is included. Specimen Performing Organization Address City/State/ZIP Code P amara [place] * MA Outside images for PACS (08/01/2021 7:43 AM SEAMER PANTY HOSE) Only the most recent of 4 results within the time period is included. Specimen Performing Organization Address City/State/ZIP Code Gertrudis Swain [place] * MA MAMMOGRAM SCREENING W CAD TIMOTHY BILAT (07/31/2021 10:11 AM SEAMER PANTY HOSE) Modality Anatomical Region Laterality Mammography Breast Specimen Impressions JONES - 08/01/2021 2:19 PM SEAMER PANTY HOSE No mammographic evidence of malignancy. Routine mammogram in 1 year is recommended. Patient will receive a reminder letter. BI-RADS CATEGORY 1: Negative READING SITE: [facility] Ashlyn Vargas M.D. Electronically Signed: 08/01/2021 at 02:16:09 PM Your patient will receive the results of this examination as outlined by the Mammography Quality Standards Act. Cintia Merino, [id number] 1975 1 Page 1li Narrative JONES - 08/01/2021 2:19 PM SEAMER PANTY HOSE [facility] [address] [place] [address], [address] [place] [address] Patient: Cintia Merino Date of : 1975 Referring Physician: Clarita Briceno Exam Date: 07/31/2021 Exam Procedure Performed: MA Mammogram screening w CAD timothy bilat - bilateral REASON FOR EXAM Patient is 46 years old and is seen for screening. The following views were obtained: bilateral CC; bilateral MLO; bilateral CC TIMOTHY; and bilateral MLO TIMOTHY. IMAGE COMPARISON Comparison is made with prior exams dating back to 06/13/20, 04/20/19, 04/19/18. DIGITAL MAMMOGRAM CAD-analysis was used in the interpretation of this study. The breasts are almost entirely fatty. There are no suspicious masses, areas of architectural distortion or malignant appearing calcifications identified. Procedure Note Ashlyn Vargas MD - 08/01/2021 [facility] [address], [address] [place] [address] Patient: Cintia Merino Date of : 1975 Referring Physician: Clarita Briceno Exam Date: 07/31/2021 Exam Procedure Performed: MA Mammogram screening w CAD timothy bilat - bilateral REASON FOR EXAM Patient is 46 years old and is seen for screening. The following views were obtained: bilateral CC; bilateral MLO; bilateral CC TIMOTHY; and bilateral MLO TIMOTHY. IMAGE COMPARISON Comparison is made with prior exams dating back to 06/13/20, 04/20/19, 04/19/18. DIGITAL MAMMOGRAM CAD-analysis was used in the interpretation of this study. The breasts are almost entirely fatty. There are no suspicious masses, areas of architectural distortion or malignant appearing calcifications identified. IMPRESSION No mammographic evidence of malignancy. Routine mammogram in 1 year is recommended. Patient will receive a reminder letter. BI-RADS CATEGORY 1: Negative READING SITE: [facility] Ashlyn Vargas M.D. Electronically Signed: 08/01/2021 at 02:16:09 PM Your patient will receive the results of this examination as outlined by the Mammography Quality Standards Act. Cintia Merino, [id number] 1975 1 Page 1li Performing Organization Address City/State/[facility] Code P amara Number [place] from Last 3 Months Insurance Type Payer Benefit Subscriber ID Effective Phone Address Plan / Dates Group [employer] [facility] OUT OF [id number] 2019-P [id number] [place] [address] Advance Directives For more information, please contact: [phone] Patient Early Childhood Special Educator Explanation Type Date Recorded Advance Directives and Living Will Power of Health It Specialist Health Care Directive Date Inactivated Comments Code Status Date Activated 05/03/2020 2:48 PM Full Code 05/01/2020 10:18 AM 05/18/2018 6:18 PM Full Code 05/18/2018 11:35 AM 05/18/2018 11:35 AM Full Code 05/18/2018 11:35 AM Care Teams Start Date End Date Floor Coverer Apprentice Relationship Specialty 12/29/17 Vega Sultana MD PCP - General Pediatrics
--- OUTSIDE RECORDS SUMMARY | 2021-08-16 13:44 | XMS REPORT | Encounter Summary ---
Author Author [facility] Organization [facility] Address Unknown Phone Unavailable Care Team Providers Care Able Seaman Name Role Phone Vega Sultana MD PCP Encounter Details Care Team Description Date Type Department Encounter for consultation 08/01/2021 Imaging [facility] Virtual Revenu e Appointment Location Social History [...] Team Description Date Type Specialty Clarita Briceno, [facility] [address] [address] 08/05/2022 Office Visit Obstetrics and Gyne cology documented as of this encounter Procedures Comments Procedure Name Priority Date/Time Associated Diag nosis US OUTSIDE IMAGES FOR Routine 08/01/2021 Encounte r for PACS 7:44 AM CONTRACT PROJECT MANAGER consultation documented in this encounter Visit Diagnoses Diagnosis Encounter for consultation documented in this encounter Care Teams Start Date End Date Able Seaman Relationship Specialty 12/29/17 Vega Sultana MD PCP - General Pediatrics documented as of this encounter
--- OUTSIDE RECORDS SUMMARY | 2021-08-16 13:44 | XMS REPORT | Encounter Summary ---
Author Author [facility] Organization [facility] Address Unknown Phone Unavailable Care Team Providers Care Refrigerator Room Clerk Name Role Phone Vega Sultana MD PCP Encounter Details Care Team Description Date Type Department Encounter for consultation 08/01/2021 Imaging [facility] Virtual Revenu e Appointment Location Social [...] Treatment Care Team Description Date Type [facility]ty [facility] [address] [facility] [address] [place] [address] 08/05/2022 Office Visit Obstetrics and Gyne cology documented as of this encounter Procedures Comments Procedure Name Priority Date/Time Associated Diag nosis MA OUTSIDE IMAGES FOR Routine 08/01/2021 Encounte r for PACS 7:43 AM HEALTHCARE ADMINISTRATION INTERN consultation documented in this encounter Visit Diagnoses Diagnosis Encounter for consultation documented in this encounter Care Teams Start Date End Date Refrigerator Room Clerk Relationship Specialty 12/29/17 Vega Sultana MD PCP - General Pediatrics documented as of this encounter
--- OUTSIDE RECORDS SUMMARY | 2021-08-16 13:44 | XMS REPORT | Encounter Summary ---
Author Author [facility] Organization [facility] Address Unknown Phone Unavailable Care Team Providers Care Carousel Operator Name Role Phone Vega Sultana MD PCP Encounter Details Care Team Description Date Type Department Encounter for consultation 08/01/2021 Imaging [facility] Virtual Revenu e Appointment Location Social [...] Treatment Care Team Description Date Type [facility]ty [facility] [address] [facility] [address] [place] [address] 08/05/2022 Office Visit Obstetrics and Gyne cology documented as of this encounter Procedures Comments Procedure Name Priority Date/Time Associated Diag nosis MA OUTSIDE IMAGES FOR Routine 08/01/2021 Encounte r for PACS 7:43 AM TAKE OFF MAN consultation documented in this encounter Visit Diagnoses Diagnosis Encounter for consultation documented in this encounter Care Teams Start Date End Date Carousel Operator Relationship Specialty 12/29/17 Vega Sultana MD PCP - General Pediatrics documented as of this encounter
--- OUTSIDE RECORDS SUMMARY | 2021-08-16 13:45 | XMS REPORT | Encounter Summary ---
Author Author [facility] Organization [facility] Address Unknown Phone Unavailable Care Team Providers Care Spot Welder Line Name Role Phone Vega Sultana MD PCP Reason for Visit * Reason Onset Date Comments med too expensive 06/20/2021 Encounter Details Care Team Description Date Type Department Suzanne Meade RN med too expensive 06/20/2021 Telephone [facility] [address] [facility] [address] [place] [address] Social History Date Tobacco Use Types Packs/Day [...] on file documented as of this encounter Miscellaneous Notes * Telephone Encounter - Suzanne Meade RN - 06/20/2021 4:11 PM CDT Pt advised, would like rx sent to [facility]. Rx sent. * Telephone Encounter - SLIM Bundy - 06/20/2021 1:43 PM CDT Estradiol transdermal 0.05 mg patches are $36.63 at month at [facility] and $38 a t [facility]. Would she like to try this? Her oral options are estradiol, which she did not like, and Premarin, which does not have a generic. * Telephone Encounter - Suzanne Meade RN - 06/20/2021 1:23 PM CDT In Home Tutor pt called stating she was prescribed vivelle dot patches for menopausal symp toms and it was too expensive. Pt tried [facility] and even with that it was 200$. P t wanting an alternative. Pt states she ok taking a pill. Advised pt would consu TLN for alternative and return call. * Telephone Encounter - Suzanne Meade RN - 06/20/2021 1:19 PM CDT ----- Message from Nancy Richmond CNA sent at 06/20/2021 11:30 AM CDT ----- PT of Janak-pt said med prescribed yesterday is too exp. Asking for a different ulternative [phone] documented in this encounter Plan of Treatment Care Team Description Date Type Specialty Clarita Briceno AR[place] [address] [address] 08/05/2022 Office Visit Obstetrics and Gyne cology documented as of this encounter Visit Diagnoses Not on filedocumented in this encounter Care Teams Start Date End Date Spot Welder Line Relationship Specialty 12/29/17 Vega Sultana MD PCP - General Pediatrics documented as of this encounter
--- OUTSIDE RECORDS SUMMARY | 2021-08-16 13:45 | XMS REPORT | Encounter Summary ---
Author Author [facility] Organization [facility] Address Unknown Phone Unavailable Care Team Providers Care Drum Tester Name Role Phone Vega Sultana MD PCP Reason for Referral * Diagnostic Imaging (Routine) - Closed Diagnoses / Procedures [facility]erred [facility] mamm[facility], encounter for Procedures MA Mammogram screening w Clarita Pérez ARNP [address] [place] [address] [facility] Mammo [place] [address] [facility] [address] [place] [address] Radiology Referral ID Status Reason Start Date Expiration Visits Vi sits Date Requested Authorized [id number] Closed 06/19/2021 06/19/2022 1 1 CTOR OF MEDIA Reason for Visit * Diagnostic Imaging (Routine) - Closed Diagnoses / Procedures Referred By [facility] Screening mammogram, encounter for Procedures MA Mammogram screening w Clarita Pérez ARNP [address] [place] [address] [facility]amm[facility] [place] [address], [address] [place] [address] Radiology Referral ID Status Reason Start Date Expiration Visits Vi sits Date Requested Authorized [id number] Closed 06/19/2021 06/19/2022 1 1 Encounter Details Care Team Description Date Type Department [facility]ric[facility] [address] [facility] [address] [place] [address] Screening mammogram, encounter for 07/31/2021 [facility] [address], [address] [place] [address] Social History Date Tobacco Use Types Packs/Day [...] on file documented as of this encounter Medications at Time of Discharge Start Date End Date Medication Sig Dispensed Refills 07/19/2019 albuterol Inhale 2 0 (PROAIR/PROVENTIL/VENTOLI puffs every 6 N) 90 mcg/actuation HFA (six) hours inhaler as needed. 09/15/2017 budesonide-formoteroL Inhale 2 0 (SYMBICORT) 160-4.5 puffs as mcg/actuation inhaler needed. 08/01/2021 estradioL 0.05 mg/24 Place 1 patch 24 patch 3 hrIndications: Menopausal on the skin 2 syndrome on hormone (two) times a replacement therapy week. 01/24/2019 ondansetron (ZOFRAN-ODT) Take 4 mg by 0 4 MG disintegrating mouth every 8 tablet (eight) hours as needed. 01/26/2019 SUMAtriptan (IMITREX) 25 1 tablet with 0 MG tablet onset of migraine symptoms. may repeat 1 tab after 2 hours if symptoms persist. 03/04/2019 topiramate (TOPAMAX) 50 Take 50 mg by 0 MG tablet mouth. documented as of this encounter Plan of Treatment Care Team Description Date Type Specialty Clarita Briceno ARNP [address] [facility] [address] [place] [address] 08/05/2022 Office Visit Obstetrics and Gyne cology documented as of this encounter Procedures Comments Procedure Name Priority Date/Time Associated Diag nosis MA MAMMOGRAM SCREENING W Routine 07/31/2021 [facility] joyceg mammogram, CAD TIMOTHY BILAT 10:11 AM DIRECTOR OF MEDIA encounter for documented in this encounter Results * MA MAMMOGRAM SCREENING W CAD TIMOTHY BILAT (07/31/2021 10:11 AM DIRECTOR OF MEDIA) Modality Anatomical Region Laterality Mammography Breast Specimen Impressions RODOLFO - 08/01/2021 2:19 PM DIRECTOR OF MEDIA No mammographic evidence of malignancy. Routine mammogram in 1 year is recommended. Patient will receive a reminder letter. BI-RADS CATEGORY 1: Negative READING SITE: [facility] Ashlyn Vargas M.D. Electronically Signed: 08/01/2021 at 02:16:09 PM Your patient will receive the results of this examination as outlined by the Mammography Quality Standards Act. Cintia Merino, [id number] 1975 1 Page 1li Narrative JONES - 08/01/2021 2:19 PM DIRECTOR OF MEDIA [facility] [address], [address] [place], [place] [id number] Patient: Cintia Merino Date of : 1975 [...] Procedure Note Ashlyn Vargas MD - 08/01/2021 [facility] [address], [address] [place] [address] Patient: Cintia Merino Date of : 1975 [...] letter. BI-RADS CATEGORY 1: Negative READING SITE: [facility] Ashlyn Vargas M.D. Electronically Signed: 08/01/2021 at 02:16:09 PM Your patient will receive the results of this examination as outlined by the Mammography Quality Standards Act. Cintia Merino, [id number] 1975 1 Page 1li Performing Organization Address City/State/ZIP Code P [facility]ara [facility] documented in this encounter Visit Diagnoses Diagnosis Screening mammogram, encounter for documented in this encounter Care Teams Start Date End Date Drum Tester Relationship Specialty 12/29/17 Vega Sultana MD PCP - General Pediatrics documented as of this encounter
--- OUTSIDE RECORDS SUMMARY | 2021-08-16 13:45 | XMS REPORT | Encounter Summary ---
Author Author [facility] Organization [facility] Address Unknown Phone Unavailable Care Team Providers Care Outcomes Specialist Name Role Phone Vega Sultana MD PCP Reason for Visit * Reason Comments Annual Exam Follow-up Encounter Details Care Team Description Date Type Department Clarita Briceno [facility] [address] [place], [place] [id number] Encounter for gynecological examination with abnormal finding (Primary Dx); 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; Pelvic pain; MORAIMA (stress urinary incontinence, female); Screening mammogram, encounter for 07/31/2021 Office Visit [facility] [address] [place], [place] [id number] Social History Date Tobacco Use Types Packs/Day [...] on file documented as of this encounter Last Filed Vital Signs Reading Time Taken Comments Vital Sign 122/73 07/31/2021 9:03 AM PROVIDER RELATIONS REPRESENTATIVE Blood Pressure - - Pulse - - Temperature - - Respiratory Rate - - Oxygen Saturation - - Inhaled Oxygen Concentration 78.9 kg (174 lb) 07/31/2021 9:03 AM PROVIDER RELATIONS REPRESENTATIVE Weight 157.5 cm (5' 2") 07/31/2021 9:03 AM PROVIDER RELATIONS REPRESENTATIVE Height 31.83 07/31/2021 9:03 AM PROVIDER RELATIONS REPRESENTATIVE Body Mass Index documented in this encounter Progress Notes * Josh Up DO - 07/31/2021 9:00 AM PROVIDER RELATIONS REPRESENTATIVE I have reviewed and agree with the notes of this encounter. Josh Up 07/31/2021 10:08 AM IDER RELATIONS REPRESENTATIVE * SLIM Bundy - 07/31/2021 9:00 AM PROVIDER RELATIONS REPRESENTATIVE [facility] | [facility] Patient Name: Cintia Merino : 1975 Date of Service: 07/31/2021 PROGRESS NOTE - ADULT WELL WOMAN VISIT CHIEF COMPLAINT: Chief Complaint Patient presents with Annual Exam Follow-up HPI Cintia Merino is a 46 y.o. female here today for well exam and follow up menopau lisa symptoms. She is now 1 years postmenopause following LUISA/BSO in April 2020 for uterine fibroids. Vasomotor symptoms are improving on transdermal estrogen. She is sexually active. Vaginal dryness and pain with intercourse denied. Incont inence occasionally with cough, especially. She has occasional urge incontinence if her bladder is really full. Denies vaginal bleeding or discharge. Patient co mplains of intermittent sharp pelvic pain. She has been evaluated by primary car e. X-ray was normal. Patient states she was told it was a muscle cramp. She stat es it is happening more frequently and is concerned. 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 Menstrual History: Date of last PAP: 04/04/20 PAP date in Health Maintenance: No History of abnormal PAP Smear: Yes (Comment: Cryotherapy) Approximate date if unknown: Health Cycle Frequency: (Comment: s/p hyst) Ashwini/Menopause: Ashwini/Menopausal Symptoms: decreased libido, hot flashes, mood swings Menopause: Current HRT Therapies: estrogen Previous HRT Therapies: estrogen Past Medical History: Diagnosis Date Abnormal Pap smear of cervix Allergic rhinitis Delayed emergence from anesthesia Depression Epilepsy (HCC) diagnosed as a child, last seizure 1997 Fibroid GERD (gastroesophageal reflux disease) Headache Hiatal hernia Migraine Osteoarthritis lower back Seizures (HCC) Sinusitis Urinary incontinence Past Surgical History: Procedure Laterality Date APPENDECTOMY 2006 CHOLECYSTECTOMY 2004 COLPOSCOPY EGD, WITH BALLOON DILATION N/A 09/09/2018 Procedure: ESOPHAGOGASTRODUODENOSCOPY, WITH BALLOON DILATION; Surgeon: Alisha Thibodeaux MD; Location: [facility] GI; Service: Gastroenterology; Laterali ty: N/A; FUNDOPLICATION, LAPAROSCOPIC, RENATO N/A 05/18/2018 Procedure: LAPAROSCOPIC ESOPHAGEAL SPHINCTER AUGMENTATION; Surgeon: Cesario elaine MD; Location: [facility] Main OR; Service: General; Laterality: N/A; GYNECOLOGIC CRYOSURGERY HYSTERECTOMY,ABDOMINAL,OPEN,WITH BILATERAL SALPINGO-OOPHORECTOMY Bilateral Procedure: HYSTERECTOMY, ABDOMINAL, OPEN, WITH BILATERAL SALPINGECTOMY/OOPHEREC XENIA; Surgeon: Catina Ames MD; Location: [facility] Main OR; Service: Gynecology; Laterality: Bilateral; REPAIR, HIATAL HERNIA, LAPAROSCOPIC N/A 05/18/2018 Procedure: LAPAROSCOPIC HIATAL HERNIA REPAIR,; Surgeon: Cesario Johnson MD; Loc ation: [facility] Main OR; Service: General; Laterality: N/A; UPPER GASTROINTESTINAL ENDOSCOPY Family History Problem Relation Age of Onset Diabetes Mother Hypertension Mother Prostate cancer Father Esophageal cancer Father Breast cancer Maternal Aunt Ovarian cancer Maternal Aunt Breast cancer Maternal Aunt Colon cancer Neg Hx Stroke Neg Hx Alcohol abuse Neg Hx Uterine cancer Neg Hx Coronary artery disease Neg Hx Social History Socioeconomic History Marital status: Tobacco Use Smoking status: Never Smoker Smokeless tobacco: Never Used Vaping Use Vaping Use: Never used Substance and Sexual Activity Alcohol use: Yes Comment: rare Drug use: No Sexual activity: Yes Partners: Male control/protection: None PHQ-9: Over the last 2 weeks, how often have you been bothered by any of the following problems? Little Interest or Pleasure in Doing Things: 0 Feeling Down, Depressed, or Hopeless: 0 Trouble falling or staying asleep, or sleeping too much: 0 Feeling tired or having little energy: 1 Poor appetite or overeatin Feeling bad about yourself - or that you are a failure or have let yourself or y our family down: 0 Trouble concentrating on things, such as reading the newspaper or watching telev ision: 0 Moving or speaking so slowly that other people could have noticed. Or the opposi te - being so fidgety or restless that you have been moving around a lot more th an usual: 0 Thoughts that you would be better off , or of hurting yourself in some way: 0 PHQ-9 Total Score: 2 If you checked off any problems, how difficult have these problems made it for y ou to do your work, take care of things at home, or get along with other people? : Not difficult at all Score Interpretation: Minimal Depressive Symptoms CURRENT MEDICATIONS Current Outpatient Medications: albuterol (PROAIR/PROVENTIL/VENTOLIN) 90 mcg/actuation HFA inhaler, Inhale 2 puffs every 6 (six) hours as needed., Disp: , Rfl: budesonide-formoteroL (SYMBICORT) 160-4.5 mcg/actuation inhaler, Inhale 2 p uffs as needed. , Disp: , Rfl: [START ON 08/01/2021] estradioL 0.05 mg/24 hr, Place 1 patch on the skin 2 (two) times a week., Disp: 24 patch, Rfl: 3 ondansetron (ZOFRAN-ODT) 4 MG disintegrating tablet, Take 4 mg by mouth bhavana ry 8 (eight) hours as needed., Disp: , Rfl: SUMAtriptan (IMITREX) 25 MG tablet, 1 tablet with onset of migraine symptom s. may repeat 1 tab after 2 hours if symptoms persist., Disp: , Rfl: topiramate (TOPAMAX) 50 MG tablet, Take 50 mg by mouth., Disp: , Rfl: ALLERGIES Allergies Allergen Reactions Penicillins Hives Azithromycin Hives Eletriptan Hbr Hives Prochlorperazine Hallucinations Compazine Compazine Mometasone-Formoterol Rash Triamcinolone Acetonide Rash REVIEW OF SYSTEMS Pertinent positives/negatives are noted in HPI. All other systems negative. OBJECTIVE BP 122/73 | Ht 5' 2" | Wt 174 lb | LMP 03/31/2020 | BMI 31.83 kg/m EXAMINATION GENERAL GENERAL: Well developed, well nourished White or female alert, in no a cute distress. NECK/THYROID: Neck is supple with full range of motion. No thyromegaly, masses or nodules. LYMPH NODES: No cervical, supra/infra/subclavicular lymphadenopathy. No inguina l lymphadenopathy. SKIN: No suspicious lesions, warm and dry. HEART: Heart rate regular LUNGS: Lungs clear to auscultation in all viveros. ABDOMEN: Soft, RLQ tenderness to palpation, without mass or hepatosplenomegaly. EXTREMITIES: Extremities with full range of motion and without edema NEUROLOGIC: Cooperative with exam, motor strength normal upper and lower extremi ties. PSYCH: Mood/affect full range. GYNECOLOGICAL A merchandise for resale purchasing agent was offered for this sensitive examination, but the patient requeste d that a merchandise for resale purchasing agent not be present. BREASTS: Soft, nontender, without palpable mass, no axillary adenopathy, no nip ple discharge, no skin changes. EXTERNAL GENITALIA: Hair distribution is normal. Vulva without lesions or discha rge. Bartholin and Kevin's glands are not palpable. Urethral meatus without les ion and prolapse. VAGINA: Vaginal mucosa without lesion, adequate estrogen effect, decreased tone and adequate support. There is no tenderness over the bladder CERVIX/UTERUS: Surgically absent ADNEXA: No masses or tenderness bilaterally. RECTAL: No hemorrhoids or perianal lesions ASSESSMENT/PLAN 1. Encounter for gynecological examination with abnormal finding Encourage calcium intake of 7980-7675 mg daily in diet and supplement. Vitamin D supplementation of at least 0160-6768 IU daily Encouraged aerobic exercise 30-60 minutes most days per week. Goal of 150+ minut es per week Screening cervical cytology is no longer indicated due to history of hysterectom y, low risk for new HPV acquisition and adequate negative prior screening. Depression symptoms are minimal. PHQ-9 score of 2. Immunizations needed: Sars-CoV-19 vaccine completed. Influenza vaccinated for season 2. 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 Doing well with current therapy. Continue estradiol patch Prescription refilled for one year - estradioL 0.05 mg/24 hr; Place 1 patch on the skin 2 (two) times a week. Disp ense: 24 patch; Refill: 3 3. Pelvic pain S/p LUISA/BSO Patient to discuss further with PCP. Consider GI consult and or pelvic CT 4. MORAIMA (stress urinary incontinence, female) Discussed pelvic floor physical therapy. Patient will call if she would like to pursue 5. Screening mammogram, encounter for Patient is encouraged in breast awareness. Call office with concerns. Annual breast imaging is encouraged. Next mammogram scheduled for today Follow up: 1 year for Well Woman Exam or prn concerns Clarita Briceno APRN, WHNP-BC IDER RELATIONS REPRESENTATIVE documented in this encounter Plan of Treatment Care Team Description Date Type Specialty Clarita Briceno ARNP [address] [facility] [address] [place] [address] 08/05/2022 Office Visit Obstetrics and Gyne cology documented as of this encounter Visit Diagnoses Diagnosis Encounter for gynecological examination with abnormal finding - Primary Menopausal syndrome on hormone replacem ent therapy Pelvic pain MORAIMA (stress urinary incontinence, femal e) Screening mammogram, encounter for documented in this encounter Care Teams Start Date End Date Outcomes Specialist Relationship Specialty 12/29/17 Vega Sultana MD PCP - General Pediatrics documented as of this encounter
--- OUTSIDE RECORDS SUMMARY | 2021-08-16 13:45 | XMS REPORT | Encounter Summary ---
Author Author [facility] Organization [facility] Address Unknown Phone Unavailable Care Team Providers Care Armature Varnisher Name Role Phone Vega Sultana MD PCP Reason for Referral * Diagnostic Imaging (Routine) - Closed Diagnoses / Procedures [facility] Screening mammogram, encounter for Procedures MA Mammogram screening w CAD bilat Clarita Briceno ARNP [address] [address] [place] [address] [facility] [place] [address], [address] [place] [address] Radiology Referral ID Status Reason Start Date Expiration Visits Vi sits Date Requested Authorized [id number] Closed 06/19/2021 06/19/2022 1 1 Reason for Visit * Reason Comments Menopause Encounter Details Care Team Description Date Type Department Clarita Briceno ARNP [address] [place] [address] Menopausal syndrome (Primary Dx); Screening mammogram, encounter for 06/19/2021 Office Visit [facility] [address] [place], [place] [id number] Social History Date Tobacco Use Types Packs/Day [...] Signs Reading Time Taken Comments Vital Sign 126/85 06/19/2021 11:14 AM CDT Blood Pressure - - Pulse - - Temperature - - Respiratory Rate - - Oxygen Saturation - - Inhaled Oxygen Concentration 79.8 kg (176 lb) 06/19/2021 11:14 AM CDT Weight 157.5 cm (5' 2") 06/19/2021 11:14 AM CDT Height 32.19 06/19/2021 11:14 AM CDT Body Mass Index documented in this encounter Progress Notes * SLIM Bundy - 06/19/2021 11:15 AM CDT [facility] | [facility] Patient Name: Cintia Merino : 1975 Date of Service: 06/19/2021 CHIEF COMPLAINT: Menopause History of Present Illness Cintia Merino is a 46 y.o. female who presents to office with complaint of menopausal symptoms. She has been seen by Dr. Ames in the past. Patient i s s/p LUISA/BSO in 04/2020 for fibroids and AUB. Patient complains of moods swings and being overly emotional. She has multiple hot flashes throughout the day. Den ies night sweats and sleep disturbances. She is sexually active and denies pain and dryness with intercourse. She has family history of breast and ovarian cance r. She reports negative genetic screening in the past. Mammogram is current. We do not have results. Medical history of hypertension. Patient denies hyperlipide kalie. Patient was prescribed oral estradiol in the past but gained 20 pounds whil e taking this. She would like to avoid therapy which will cause weight gain. 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 Menstrual History: Date of last PAP: 04/04/20 PAP date in Health Maintenance: No History of abnormal PAP Smear: Yes (Comment: Cryotherapy) Approximate date if unknown: Health Cycle Frequency: (Comment: s/p hyst) Ashwini/Menopause Ashwini/Menopausal Symptoms: decreased libido, hot flashes, mood swings Menopause: Previous HRT Therapies: estrogen, stopped taking Past Medical History: Diagnosis Date Allergic rhinitis Delayed emergence from anesthesia Epilepsy (HCC) diagnosed as a child, last seizure 1997 GERD (gastroesophageal reflux disease) Headache Hiatal hernia Osteoarthritis lower back Seizures (HCC) Sinusitis Family History Problem Relation Age of Onset Diabetes Mother Hypertension Mother Prostate cancer Father Esophageal cancer Father Breast cancer Maternal Aunt Ovarian cancer Maternal Aunt Breast cancer Maternal Aunt Social History Socioeconomic History Marital status: Spouse name: Not on file Number of children: Not on file Years of education: Not on file Highest education level: Not on file Tobacco Use Smoking status: Never Smoker Smokeless tobacco: Never Used Vaping Use Vaping Use: Never used Substance and Sexual Activity Alcohol use: Yes Comment: rare Drug use: No Sexual activity: Yes Partners: Male control/protection: None Social Determinants of Health Financial Resource Strain: Difficulty of Paying Living Expenses: Food Insecurity: Worried About Running Out of Food in the Last Year: Ran Out of Food in the Last Year: Transportation Needs: Lack of Transportation (Medical): Lack of Transportation (Non-Medical): Physical Activity: Days of Exercise per Week: Minutes of Exercise per Session: Stress: Feeling of Stress : MEDICATIONS: Current Outpatient Medications: albuterol (PROAIR/PROVENTIL/VENTOLIN) 90 mcg/actuation HFA inhaler, Inhale 2 puffs every 6 (six) hours as needed., Disp: , Rfl: budesonide-formoteroL (SYMBICORT) 160-4.5 mcg/actuation inhaler, Inhale 2 p uffs as needed. , Disp: , Rfl: docusate sodium (COLACE) 100 MG capsule, Take 1 capsule (100 mg total) by m outh 2 (two) times a day., Disp: 60 capsule, Rfl: 2 ondansetron (ZOFRAN-ODT) 4 MG disintegrating tablet, Take 4 mg by mouth bhavana ry 8 (eight) hours as needed., Disp: , Rfl: SUMAtriptan (IMITREX) 25 MG tablet, 1 tablet with onset of migraine symptom s. may repeat 1 tab after 2 hours if symptoms persist., Disp: , Rfl: topiramate (TOPAMAX) 50 MG tablet, Take 50 mg by mouth., Disp: , Rfl: [START ON 06/20/2021] estradioL (VIVELLE-DOT) 0.05 mg/24 hr, Place 1 patch o n the skin 2 (two) times a week., Disp: 24 patch, Rfl: 3 ALLERGIES: Allergies Allergen Reactions Penicillins Hives Azithromycin Hives Eletriptan Hbr Hives Prochlorperazine Hallucinations Compazine Compazine Mometasone-Formoterol Rash Triamcinolone Acetonide Rash REVIEW OF SYSTEMS: Pertinent items are noted in HPI. PHYSICAL EXAM: Vitals: BP 126/85 | Ht 5' 2" | Wt 176 lb | LMP 03/31/2020 | BMI 32.19 kg/m Physical Exam Constitutional: General: She is not in acute distress. Appearance: Normal appearance. She is well-developed. Musculoskeletal: General: Normal range of motion. Skin: General: Skin is warm and dry. Neurological: General: No focal deficit present. Mental Status: She is alert and oriented to person, place, and time. Psychiatric: Mood and Affect: Mood normal. Behavior: Behavior normal. Thought Content: Thought content normal. Judgment: Judgment normal. ASSESSMENT/PLAN: 1. Menopausal syndrome Discussed options of oral vs transdermal estrogen vs SSRI. Discussed side effect s including weight gain estrogen and SSRI and decreased libido with SSRI. Patient will trial transdermal estrogen. She will call with concerns prior to fo llow up appointment. - estradioL (VIVELLE-DOT) 0.05 mg/24 hr; Place 1 patch on the skin 2 (two) times a week. Dispense: 24 patch; Refill: 3 2. Screening mammogram, encounter for - MA Mammogram screening w CAD bilat; Future Follow up: 6-8 weeks for WWE and medication follow up Clarita Briceno APRN, WHLESTER-BC documented in this encounter Plan of Treatment Care Team Description Date Type Specialty Clarita Briceno ARNP [address] [address] 08/05/2022 Office Visit Obstetrics and Gyne cology documented as of this encounter Results * MA MAMMOGRAM SCREENING W CAD TIMOTHY BILAT (07/31/2021 10:11 AM MATERIAL CONTROL ASSOCIATE) Modality Anatomical Region Laterality Mammography Breast Specimen Impressions JONES - 08/01/2021 2:19 PM MATERIAL CONTROL ASSOCIATE No mammographic evidence of malignancy. Routine mammogram in 1 year is recommended. Patient will receive a reminder letter. BI-RADS CATEGORY 1: Negative READING SITE: [facility] Ashlyn Vargas M.D. Electronically Signed: 08/01/2021 at 02:16:09 PM Your patient will receive the results of this examination as outlined by the Mammography Quality Standards Act. Cintia Merino, [id number] 1975 1 Page 1li Narrative JONES - 08/01/2021 2:19 PM MATERIAL CONTROL ASSOCIATE [address], [address] [place] [address] Patient: Cintia Merino Bridget Date of : 1975 Referring Physician: Clarita [...] Procedure Note Ashlyn Vargas MD - 08/01/2021 [facility] [address], [address] [place] [address] Patient: Cintia Merino Date of [...] letter. BI-RADS CATEGORY 1: Negative READING SITE: [facility] Ashlyn Vargas M.D. Electronically Signed: 08/01/2021 at 02:16:09 PM Your patient will receive the results of this examination as outlined by the Mammography Quality Standards Act. Cintia Merino, [id number] 1975 1 Page 1li Performing Organization Address City/State/ZIP Code P [facility] Number [place] documented in this encounter Visit Diagnoses Diagnosis Menopausal syndrome - Primary Symptomatic menopausal or female climac teric states Screening mammogram, encounter for Screening mammogram, encounter for documented in this encounter Care Teams Start Date End Date Armature Varnisher Relationship Specialty 12/29/17 Vega Sultana MD PCP - General Pediatrics documented as of this encounter
[2021-08-16] MEDS ORDERED: KETOROLAC 30 MG/ML VIAL IVP STA (13:58)
--- NOTE | 2021-08-16 14:06 | ED Chest Pain ---
General Chief Complaint: Chest Pain Stated Complaint: CHEST PAIN Source: patient History of Present Illness Date Seen by Provider: Aug 16, 2021 Time Seen by Provider: 13:40 Initial Comments 46-year-old female presenting with complaints of left-sided sharp chest pains with deep breath. She states that this started around 8:45 AM. She has not had pain like this before. She denied any trauma or injury. She has not had any cough or congestion. She denies any fever or chills. She does have mild nausea with the pain. She states that the pain came on while she was getting dressed. She has had the pain fairly constantly since 845 this morning. She thought it just get better but when it was not going away she finally came to the emergency department. She has a history of having a hysterectomy as well as migraines. She has not taken anything for the pain. Timing/Duration: 4-6 hours Severity/Quality: severe Prior CP/Workup: no prior chest pain ASA po [employer]: No NTG SL [employer]: No Associated Symptoms: No abdominal pain, No back pain, No diaphoresis, No dizziness, No edema, No fatigue, No fever/chills, No headache, No heartburn; nausea/vomiting (nausea but no vomiting); No rash, No swelling/lump in chest, No syncope, No weakness Allergies and Home Medications Allergies Coded Allergies: Penicillins (Verified Allergy, Unknown, 01/20/19) azithromycin (Verified Allergy, Unknown, 08/16/21) eletriptan (Verified Allergy, Unknown, 08/16/21) mometasone furoate (Verified Allergy, Unknown, 08/16/21) prochlorperazine (Verified Allergy, Unknown, 08/16/21) triamcinolone (Verified Allergy, Unknown, 08/16/21) Patient Home Medication List Home Medication List Reviewed: Yes Ibuprofen (Ibuprofen) 800 Mg Tablet, 800 MG PO Q8H PRN for PAIN Prescribed by: CHUCKY SINGH on 08/16/21 6090 Review of Systems Review of Systems Constitutional: No chills, No fever EENTM: No Symptoms Reported Respiratory: Shortness of Air (due to pain with deep breaths on left side of chest) Cardiovascular: Chest Pain (left sided chest pain sharp in nature, worse with deep breaths and with palpation of left upper chest wall) Gastrointestinal: Nausea; Denies Vomiting Genitourinary: No Symptoms Reported Musculoskeletal: no symptoms reported Skin: No rash Psychiatric/Neurological: Anxiety; Denies Headache, Denies Numbness, Denies Paresthesia Hematologic/Lymphatic: Denies Blood Clots Past Vfnqrid-Wuumoq-Bctvzx Hx Patient Social History Tobacco Use?: No Past Medical History Surgery/Hospitalization HX: Total Hysterectomy and oopherectomy for vaginal bleeding. Migraines Surgeries: Yes Hysterectomy, Oophorectomy Physical Exam Vital Signs Vital Signs - First Documented 08/16/21 13:50 Temp 36.8 Pulse 91 Resp 16 B/P (MAP) 161/101 (121) Pulse Ox 99 O2 Delivery Room Air Capillary Refill : Height, Weight, BMI Height: 5'2.00" Weight: 170lbs. oz. 77.369564ti; BMI Method:Stated General Appearance: WD/WN, Anxious HEENT: PERRL/EOMI, Pharynx Normal Neck: Full Range of Motion, Normal Inspection, Non Tender, Supple Respiratory: Lungs Clear, Normal Breath Sounds, No Accessory Muscle Use, No Respiratory Distress; No Rhonci, No Stridor, No Wheezing; Other (tender to palpation left upper anterior chest wall causes the same pain as when she gonzalo aths deep) Cardiovascular: Regular Rate, Rhythm, No Edema, No Murmur, Normal Peripheral Pulses Gastrointestinal: Normal Bowel Sounds, No Pulsatile Mass, Non Tender, Soft Rectal: Deferred Extremity: Normal Capillary Refill, Normal Inspection, No Calf Tenderness, No Pedal Edema Neurologic/Psychiatric: Alert, Oriented x3, annual giving director II-XII Norm as Tested Skin: Normal Color, Warm/Dry Images 1 - tender to palpation left upper chest wall Progress/Results/Core Measures Results/Orders Lab Results Laboratory Tests Test 08/16/21 13:53 Range/Units White Blood Count 8.5 4.3-11.0 10^3/uL Red Blood Count 4.82 3.80-5.11 10^6/uL Hemoglobin 14.2 11.5-16.0 g/dL Hematocrit 43 35-52 % Mean Corpuscular Volume 88 80-99 fL Mean Corpuscular Hemoglobin 29 25-34 pg Mean Corpuscular Hemoglobin Concent 33 32-36 g/dL Red Cell Distribution Width 14.0 10.0-14.5 % Platelet Count 338 130-400 10^3/uL Mean Platelet Volume 10.3 9.0-12.2 fL Immature Granulocyte % (Auto) 0 % Neutrophils (%) (Auto) 50 42-75 % Lymphocytes (%) (Auto) 38 12-44 % Monocytes (%) (Auto) 7 0-12 % Eosinophils (%) (Auto) 3 0-10 % Basophils (%) (Auto) 1 0-10 % Neutrophils # (Auto) 4.3 1.8-7.8 X 10^3 Lymphocytes # (Auto) 3.3 1.0-4.0 X 10^3 Monocytes # (Auto) 0.6 0.0-1.0 X 10^3 Eosinophils # (Auto) 0.3 0.0-0.3 10^3/uL Basophils # (Auto) 0.1 0.0-0.1 10^3/uL Immature Granulocyte # (Auto) 0.0 0.0-0.1 10^3/uL Prothrombin Time 13.1 12.2-14.7 SEC INR Comment 1.0 0.8-1.4 Activated Partial Thromboplast Time 27 24-35 SEC D-Dimer 0.34 0.00-0.49 UG/ML Sodium Level 139 135-145 MMOL/L Potassium Level 3.9 3.6-5.0 MMOL/L Chloride Level 104 98-107 MMOL/L Carbon Dioxide Level 24 21-32 MMOL/L Anion Gap 11 5-14 MMOL/L Blood Urea Nitrogen 12 7-18 MG/DL Creatinine 0.75 0.60-1.30 MG/DL Estimat Glomerular Filtration Rate 82 BUN/Creatinine Ratio 16 Glucose Level 87 70-105 MG/DL Calcium Level 9.2 8.5-10.1 MG/DL Corrected Calcium 9.0 8.5-10.1 MG/DL Magnesium Level 2.1 1.6-2.4 MG/DL Total Bilirubin 0.3 0.1-1.0 MG/DL Aspartate Amino Transf (AST/SGOT) 21 5-34 U/L Alanine Aminotransferase (ALT/SGPT) 18 0-55 U/L Alkaline Phosphatase 95 40-136 U/L Troponin I < 0.30 <0.30 NG/ML Pro-B-Type Natriuretic Peptide 21.1 <75.0 PG/ML Total Protein 8.0 6.4-8.2 GM/DL Albumin 4.3 3.2-4.5 GM/DL Lipase 39 8-78 U/L My Orders Orders - CHUCKY SINGH MD Cbc With Automated Diff (08/16/21 13:58) Magnesium (08/16/21 13:58) Chest 1 View Ap/Pa Only (08/16/21 13:58) Ekg Tracing (08/16/21 13:58) Comprehensive Metabolic Panel (08/16/21 13:58) Protime With Inr (08/16/21 13:58) Partial Thromboplastin Time (08/16/21 13:58) O2 (08/16/21 13:58) Monitor-Rhythm Ecg Trace Only (08/16/21 13:58) Ed Iv/Invasive Line Start (08/16/21 13:58) Lipase (08/16/21 13:58) Troponin I Fs (08/16/21 13:58) Probnp Fs (08/16/21 13:58) Fibrin Degradation Products (08/16/21 13:58) Ketorolac Injection (Toradol Injection) (08/16/21 13:58) Vital Signs/I&O 08/16/21 08/16/21 13:50 16:37 Temp 36.8 Pulse 91 71 Resp 16 16 B/P (MAP) 161/101 (121) 128/71 Pulse Ox 99 97 O2 Delivery Room Air Room Air Progress Progress Note #1: Progress Note Obtain electrocardiogram, chest x-ray, basic labs including cardiac enzymes. With the pain being reproducible on palpation will order Toradol to see if that might help. Differential diagnosis includes chest wall strain, pleurisy, costochondritis, myocardial infarction, acute coronary syndrome, anxiety Progress Note #2: Progress Note Electrocardiogram does not show any acute ischemia. Her chest x-ray is also clear without signs of any definite infiltrate or effusion. Her labs showed stable CBC without elevation in the white blood cell count or signs of anemia. Her chemistry shows stable electrolytes and negative heart enzymes. Her Toradol was not given initially but after it was administered she started to note improvement in her pain. Her vital signs remained stable. Progress Note #3: Progress Note After all of her tests were back and reviewed by reviewed with the patient that her test did not demonstrate any acute heart attack or signs of blood clots or infection. Her pain seem to be more musculoskeletal in nature or pleuritic. Will treat with ibuprofen and encourage fluids and rest. Try alternating ice and heat to the chest wall. Encouraged to follow-up through the clinic for continued concerns and if warranted cardiac risk stratification testing. Initial ECG Impression Date: Aug 16, 2021 Initial ECG Impression Time: 13:42 Initial ECG Rate: 90 Initial ECG Rhythm: Normal Sinus Initial ECG Comparisson: No Previous ECG Available Comment Normal sinus rhythm with a heart rate of 90 bpm. IA interval [address] elevation. QT interval 361 ms with a QTc interval 442 ms. There is no prior tracing available for comparison. Diagnostic Imaging Diagonstic Imaging: Xray Plain Films/CT/US/NM/MRI: chest Comments [facility]. [place], [place] NAME: JOSÉ LUIS MORIN [facility] REC#: [id number] PT STATUS: REG ER : 1975 PHYSICIAN: CHUCKY SINGH MD ADMIT DATE: 08/16/21/ER FS Signed Date of Exam:08/16/21 CHEST 1 VIEW AP/PA ONLY CHEST 1 VIEW AP/PA ONLY Indication: Chest pain. Comparison: None available. Findings: No focal airspace disease in the visualized lungs. Please note that the posterior lower lobes are poorly evaluated by portable radiography. No pleural effusion or pneumothorax. Normal cardiomediastinal silhouette. Magnetic gastroesophageal reflux beads are in place in the epigastric region. Impression: 1. No acute cardiopulmonary process by portable radiography. Dictated by: Dictated on workstation # [id number] Dict: 08/16/21 1409 Trans: 08/16/21 1410 [facility] [id number] Interpreted by: AROLDO YOUNG MD Electronically signed by: AROLDO YOUNG MD 08/16/21 1410 Reviewed: Reviewed by Me Departure Impression Primary Impression: Chest wall pain Additional Impression: Pleurisy Disposition: 01 HOME, SELF-CARE Condition: Stable Departure-Patient Inst. Decision time for Depature: 16:32 Referrals: CALLUM BEAULIEU MD (PCP/Family) Primary Care Physician Patient Instructions: Pleuritic Chest Pain ED Add. Discharge Instructions: Take Ibuprofen to help with pain and inflammation. Use ice alternating with heat to chest wall to help with the area that is tender in left upper chest wall. Check with Dr. Beaulieu and clinic about continued concerns and they may want to have you obtain a stress test or cardiology testing since your Mom had heart disease in her 60s. If you have worsening pain or more problems then you could be re-evaluated to see if there is something new or different on your tests. Currently you do not have signs for a heart attack, pneumonia or infection All discharge instructions reviewed with patient and/or family. Voiced understanding. Scripts Ibuprofen (Ibuprofen) 800 Mg Tablet 800 MG PO Q8H PRN for PAIN for 10 Days, #30 TAB 0 Refills Prov: CHUCKY SINGH MD 08/16/21 CHUCKY SINGH MD Aug 16, 2021 14:06
--- NOTE | 2021-08-16 14:11 | Diagnostic Imaging Report ---
CHEST 1 VIEW AP/PA ONLY Indication: Chest pain. Comparison: None available. Findings: No focal airspace disease in the visualized lungs. Please note that the posterior lower lobes are poorly evaluated by portable radiography. No pleural effusion or pneumothorax. Normal cardiomediastinal silhouette. Magnetic gastroesophageal reflux beads are in place in the epigastric region. Impression: 1. No acute cardiopulmonary process by portable radiography. Dictated by: Dictated on workstation # [id number]
[2021-08-16 14:24] LABS: BASOPHILS % (AUTO) 1 % (0-10); EOSINOPHILS % (AUTO) 3 % (0-10); HEMATOCRIT 43 % (35-52); HEMOGLOBIN 14.2 g/dL (11.5-16.0); LYMPHOCYTES % (AUTO) 38 % (12-44); MEAN CORPUSCULAR HEMOGLOBIN 29 pg (25-34); MEAN CORPUSCULAR HGB CONC 33 g/dL (32-36); MEAN CORPUSCULAR VOLUME 88 fL (80-99); MEAN PLATELET VOLUME 10.3 fL (9.0-12.2); MONOCYTES % (AUTO) 7 % (0-12); NEUTROPHILS % (AUTO) 50 % (42-75); PLATELET COUNT 338 10^3/uL (130-400); WHITE BLOOD COUNT 8.5 10^3/uL (4.3-11.0)
[2021-08-16 14:25] LABS: BASOPHILS # (AUTO) 0.1 10^3/uL (0.0-0.1); EOSINOPHILS # (AUTO) 0.3 10^3/uL (0.0-0.3); LYMPHOCYTES # (AUTO) 3.3 X 10^3 (1.0-4.0); MONOCYTES # (AUTO) 0.6 X 10^3 (0.0-1.0); NEUTROPHILS # (AUTO) 4.3 X 10^3 (1.8-7.8)
[2021-08-16 14:26] LABS: PROTHROMBIN TIME PATIENT 13.1 SEC (12.2-14.7)
[2021-08-16 14:41] LABS: CALCIUM 9.2 MG/DL (8.5-10.1); CREATININE SERUM 0.75 MG/DL (0.60-1.30); POTASSIUM 3.9 MMOL/L (3.6-5.0)
[2021-08-16 14:42] LABS: ALBUMIN 4.3 GM/DL (3.2-4.5); BILIRUBIN,TOTAL 0.3 MG/DL (0.1-1.0); MAGNESIUM 2.1 MG/DL (1.6-2.4)
[2021-08-16 14:45] LABS: FIBRIN DEGRADATION PRODUCTS 0.34 UG/ML (0.00-0.49)
[2021-08-16] MEDS ORDERED: IBUP-1780 PO (16:35)
[2021-08-16 16:37] VITALS: BP 128/71
== END 2021-08-16 16:38 | disposition home or self-care (01) ==
LOC: EDUNIT# 13:40 → ER FS 13:41
DX: R09.1 Pleurisy (principal)
CPT/HCPCS: 36415; 71045; 80053; 83690; 83735; 83880; 84484; 85025; 85379; 85610; 85730; 93005; 93041

== ENCOUNTER 2022-03-20 12:47 | Emergency (ER) | payer BC ==
[~2022-03-20 12:47] MED LIST: IBUP-1780 PO
--- NOTE | 2022-03-20 13:05 | ED Psychosocial ---
General Chief Complaint: Psych/Social Disorder Stated Complaint: PSYCH EVAL History of Present Illness Date Seen by Provider: Mar 20, 2022 Time Seen by Provider: 13:05 Initial Comments 46-year-old female presents because she would like to have a mental health evaluation. Patient reports he has a history of depression and anxiety. She reports that right now she just does not have the will to want to keep going. Patient reports that she has been struggling with depression and occasional suicidal thoughts for a while but today was worse than because she had a discussion with her who stated that he was planning on her. Patient reports that she sees mental health every 2 weeks. Patient did not describe a plan to me. Patient has no Allergies and Home Medications Allergies Coded Allergies: Penicillins (Verified Allergy, Unknown, 01/20/19) azithromycin (Verified Allergy, Unknown, 08/16/21) eletriptan (Verified Allergy, Unknown, 08/16/21) mometasone furoate (Verified Allergy, Unknown, 08/16/21) prochlorperazine (Verified Allergy, Unknown, 08/16/21) triamcinolone (Verified Allergy, Unknown, 08/16/21) Patient Home Medication List Home Medication List Reviewed: Yes Ibuprofen (Ibuprofen) 800 Mg Tablet, 800 MG PO Q8H PRN for PAIN Prescribed by: CHUCKY SINGH on 08/16/21 7595 Review of Systems Constitutional: No chills, No fever EENTM: no symptoms reported Respiratory: no symptoms reported Cardiovascular: no symptoms reported Gastrointestinal: no symptoms reported Genitourinary: no symptoms reported Musculoskeletal: no symptoms reported Skin: no symptoms reported Psychiatric/Neurological: See HPI Past Vxqkssy-Pjnazt-Gehbqf Hx Immunizations Up To Date First/Initial COVID19 Vaccinat: Oct 2020 Second COVID19 Vaccination Panfilo: November 2020 Past Medical History Surgery/Hospitalization HX: Total Hysterectomy and oopherectomy for vaginal bleeding. Migraines Surgeries: Yes Hysterectomy, Oophorectomy Physical Exam Vital Signs - First Documented 03/20/22 13:00 Temp 36.7 Pulse 94 Resp 18 B/P (MAP) 141/96 (111) Pulse Ox 98 O2 Delivery Room Air Capillary Refill : Height, Weight, BMI Height: 5'2.00" Weight: 170lbs. oz. 77.329568sc; 31.00 BMI Method:Stated General Appearance: WD/WN, no apparent distress Neck: full range of motion, supple Respiratory: lungs clear, normal breath sounds Cardiovascular: normal peripheral pulses, regular rate, rhythm Gastrointestinal: non tender, soft Neurologic/Psychiatric: alert, oriented x 3 Appearance/Memory: appropriate appearance Behavior/Eye Contact: avoids eye contact Thoughts/Hallucinations: other (Complains of having suicidal thoughts and thoughts of not wanting to continue) Skin: normal color, warm/dry Progress/Results/Core Measures Results/Orders Lab Results Laboratory Tests Test 03/20/22 13:30 03/20/22 13:36 Range/Units White Blood Count 8.8 4.3-11.0 10^3/uL Red Blood Count 4.53 3.80-5.11 10^6/uL Hemoglobin 13.5 11.5-16.0 g/dL Hematocrit 40 35-52 % Mean Corpuscular Volume 88 80-99 fL Mean Corpuscular Hemoglobin 30 25-34 pg Mean Corpuscular Hemoglobin Concent 34 32-36 g/dL Red Cell Distribution Width 14.6 H 10.0-14.5 % Platelet Count 292 130-400 10^3/uL Mean Platelet Volume 10.3 9.0-12.2 fL Immature Granulocyte % (Auto) 0 % Neutrophils (%) (Auto) 56 42-75 % Lymphocytes (%) (Auto) 35 12-44 % Monocytes (%) (Auto) 5 0-12 % Eosinophils (%) (Auto) 3 0-10 % Basophils (%) (Auto) 1 0-10 % Neutrophils # (Auto) 4.9 1.8-7.8 10^3/uL Lymphocytes # (Auto) 3.0 1.0-4.0 10^3/uL Monocytes # (Auto) 0.5 0.0-1.0 10^3/uL Eosinophils # (Auto) 0.3 0.0-0.3 10^3/uL Basophils # (Auto) 0.1 0.0-0.1 10^3/uL Immature Granulocyte # (Auto) 0.0 0.0-0.1 10^3/uL Sodium Level 142 135-145 MMOL/L Potassium Level 3.7 3.6-5.0 MMOL/L Chloride Level 105 98-107 MMOL/L Carbon Dioxide Level 26 21-32 MMOL/L Anion Gap 11 5-14 MMOL/L Blood Urea Nitrogen 11 7-18 MG/DL Creatinine 0.70 0.60-1.30 MG/DL Estimat Glomerular Filtration Rate 107 BUN/Creatinine Ratio 16 Glucose Level 128 H 70-105 MG/DL Calcium Level 9.5 8.5-10.1 MG/DL Corrected Calcium 9.3 8.5-10.1 MG/DL Total Bilirubin 0.2 0.1-1.0 MG/DL Aspartate Amino Transf (AST/SGOT) 18 5-34 U/L Alanine Aminotransferase (ALT/SGPT) 15 0-55 U/L Alkaline Phosphatase 84 40-136 U/L Total Protein 7.4 6.4-8.2 GM/DL Albumin 4.2 3.2-4.5 GM/DL Salicylates Level < 5.0 L 5.0-20.0 MG/DL Acetaminophen Level < 10 L 10-30 UG/ML Serum Alcohol < 10 <10 MG/DL Urine Color YELLOW Urine Clarity SL CLOUDY Urine pH 5.0 5-9 Urine Specific [place] >=1.030 1.016-1.022 Urine Protein NEGATIVE NEGATIVE Urine Glucose (UA) NEGATIVE NEGATIVE Urine Ketones NEGATIVE NEGATIVE Urine Nitrite NEGATIVE NEGATIVE Urine Bilirubin NEGATIVE NEGATIVE Urine Urobilinogen 0.2 < = 1.0 MG/DL Urine Leukocyte Esterase NEGATIVE NEGATIVE Urine RBC (Auto) NEGATIVE NEGATIVE Urine RBC NONE /HPF Urine WBC NONE /HPF Urine Squamous Epithelial Cells 5-10 /HPF Urine Crystals NONE /LPF Urine Bacteria NEGATIVE /HPF Urine Casts NONE /LPF Urine Mucus MODERATE H /LPF Urine Culture Indicated NO Urine Opiates Screen NEGATIVE NEGATIVE Urine Oxycodone Screen NEGATIVE NEGATIVE Urine Methadone Screen NEGATIVE NEGATIVE Urine Propoxyphene Screen NEGATIVE NEGATIVE Urine Barbiturates Screen NEGATIVE NEGATIVE Ur Tricyclic Antidepressants Screen NEGATIVE NEGATIVE Urine Phencyclidine Screen NEGATIVE NEGATIVE Urine Amphetamines Screen NEGATIVE NEGATIVE Urine Methamphetamines Screen NEGATIVE NEGATIVE Urine Benzodiazepines Screen NEGATIVE NEGATIVE Urine Cocaine Screen NEGATIVE NEGATIVE Urine Cannabinoids Screen NEGATIVE NEGATIVE My Orders Orders - GRANADOS,DIAMANTE L DO Ua Culture If Indicated (03/20/22 13:08) Cbc With Automated Diff (03/20/22 13:08) Comprehensive Metabolic Panel (03/20/22 13:08) Alcohol (03/20/22 13:08) Drug Screen Stat (Urine) (03/20/22 13:08) Acetaminophen (03/20/22 13:08) Salicylate (03/20/22 13:08) Ekg Tracing (03/20/22 13:08) Monitor-Rhythm Ecg Trace Only (03/20/22 13:08) Bh Status Checks/Observation Q15M (03/20/22 13:08) Vital Signs/I&O 03/20/22 13:00 Temp 36.7 Pulse 94 Resp 18 B/P (MAP) 141/96 (111) Pulse Ox 98 O2 Delivery Room Air Progress Progress Note : Progress Note Patient evaluated by behavioral health. After evaluation by behavioral health they feel that she is safe to go home with a safety plan and outpatient behavioral health follow-up. Patient was in agreement. Patient was stable and discharged home Initial ECG Impression Date: Mar 20, 2022 Initial ECG Impression Time: 14:12 Initial ECG Rate: 57 Initial ECG Rhythm: S.Tony Initial ECG Impression: Normal Departure Impression Primary Impression: Situational mixed anxiety and depressive disorder Additional Impression: Passive suicidal ideations Disposition: 01 HOME, SELF-CARE Condition: Stable Departure-Patient Inst. Referrals: CALLUM BEAULIEU MD (PCP/Family) Primary Care Physician Patient Instructions: Stress, Adjustment Disorder Add. Discharge Instructions: Please follow-up with your outpatient mental health provider per your conversation with mental health Return to the ER with any concern All discharge instructions reviewed with patient and/or family. Voiced understanding. DIAMANTE GRANADOS DO Mar 20, 2022 13:05
[2022-03-20 13:36] LABS: BASOPHILS # (AUTO) 0.1 10^3/uL (0.0-0.1); BASOPHILS % (AUTO) 1 % (0-10); EOSINOPHILS # (AUTO) 0.3 10^3/uL (0.0-0.3); EOSINOPHILS % (AUTO) 3 % (0-10); HEMATOCRIT 40 % (35-52); HEMOGLOBIN 13.5 g/dL (11.5-16.0); LYMPHOCYTES % (AUTO) 35 % (12-44); MEAN CORPUSCULAR HEMOGLOBIN 30 pg (25-34); MEAN CORPUSCULAR HGB CONC 34 g/dL (32-36); MEAN CORPUSCULAR VOLUME 88 fL (80-99); MEAN PLATELET VOLUME 10.3 fL (9.0-12.2); MONOCYTES # (AUTO) 0.5 10^3/uL (0.0-1.0); MONOCYTES % (AUTO) 5 % (0-12); NEUTROPHILS # (AUTO) 4.9 10^3/uL (1.8-7.8); NEUTROPHILS % (AUTO) 56 % (42-75); PLATELET COUNT 292 10^3/uL (130-400); WHITE BLOOD COUNT 8.8 10^3/uL (4.3-11.0)
[2022-03-20 13:39] LABS: BILIRUBIN,URINE NEGATIVE (NEGATIVE); CLARITY,URINE SL CLOUDY; COLOR,URINE YELLOW; GLUCOSE, URINE (UA) NEGATIVE (NEGATIVE); KETONES,URINE NEGATIVE (NEGATIVE); LEUKOCYTE ESTERASE ,URINE NEGATIVE (NEGATIVE); NITRITE,URINE NEGATIVE (NEGATIVE); PROTEIN,URINE NEGATIVE (NEGATIVE)
[2022-03-20 13:48] LABS: BACTERIA,URINE NEGATIVE /HPF
[2022-03-20 13:57] LABS: BENZODIAZEPINES SCREEN URINE NEGATIVE (NEGATIVE); COCAINE SCREEN URINE NEGATIVE (NEGATIVE)
[2022-03-20 13:58] LABS: AMPHETAMINE SCREEN, URINE NEGATIVE (NEGATIVE); BARBITURATE SCREEN URINE NEGATIVE (NEGATIVE); CANNABINOID SCREEN, URINE NEGATIVE (NEGATIVE); METHADONE STAT NEGATIVE (NEGATIVE); OPIATE SCREEN URINE NEGATIVE (NEGATIVE); OXYCODONE STAT NEGATIVE (NEGATIVE); PROPOXYPHENE STAT NEGATIVE (NEGATIVE); TRICYCLIC ANTIDEPRESSANTS SCRE NEGATIVE (NEGATIVE)
[2022-03-20 14:02] LABS: POTASSIUM 3.7 MMOL/L (3.6-5.0); SODIUM 142 MMOL/L (135-145)
[2022-03-20 14:03] LABS: ACETAMINOPHEN < 10 UG/ML (10-30); ALANINE AMINOTRANSFERASE 15 U/L (0-55); ALBUMIN 4.2 GM/DL (3.2-4.5); ALKALINE PHOSPHATASE 84 U/L (40-136); BILIRUBIN,TOTAL 0.2 MG/DL (0.1-1.0); BUN/CREATININE RATIO 16; CALCIUM 9.5 MG/DL (8.5-10.1); CARBON DIOXIDE 26 MMOL/L (21-32); CHLORIDE 105 MMOL/L (98-107); GFR ESTIMATED 107; GLUCOSE 128 MG/DL (70-105); SALICYLATE < 5.0 MG/DL (5.0-20.0); TOTAL PROTEIN 7.4 GM/DL (6.4-8.2)
[2022-03-20 17:15] VITALS: BP 139/81
== END 2022-03-20 17:15 | disposition home or self-care (01) ==
LOC: EDUNIT# 12:47 → ER FS 12:49
DX: F43.23 Adjustment disorder with mixed anxiety and depressed mood (principal); R45.851 Suicidal ideations
CPT/HCPCS: 36415; 80053; 80306; 81000; 85025; 93005; 93041; 99284; G0480 ×3; 80320; 80329